=== PATIENT | male | born 1970 | race Caucasian/White ===

== ENCOUNTER 2017-04-08 14:58 | Inpatient (IN) | payer OTHER ==
[~2017-04-08] VITALS: Ht 185.4 cm; Wt 91.2 kg
[~2017-04-08 14:58] MED LIST: BUME1TAB PO; FOLI1 PO; HYDR25R RECTAL; KCL10 PO; LACT20SO4 PO; LEVA750T PO; METO25 PO; OMPR20CCR PO; RIFA550 PO; SERO25TA PO; SPIR25 PO; THERM PO; THIA100T PO; WALKER ROLLING
[2017-04-08 15:10] VITALS: BP 129/74; PULSE 105; RESP 16; TEMP 99; O2SAT 99
--- NOTE | 2017-04-08 15:44 | PD ---
HPI Chief Complaint: Abdominal Pain Time Seen by Provider: 15:30 Travel History International Travel<30 days: No Contact w/Intl Traveler<30days: No Traveled to known affect area: No History of Present Illness HPI 46-year-old male presents to the emergency department via EMS for evaluation of jaundice and abdominal pain. Patient states he quit drinking about 5-6 days ago. He states that on Saturday, he noticed his eyes were turning yellow. Patient states that he has been having abdominal pain for about 5-6 days when he quit drinking. He states he was drinking about a third bottle of vodka daily. Patient reports subjective fevers and chills. He denies any chest pain or shortness of breath. Reports pain is 10/10 in the upper abdomen, sharp and throbbing, without radiation. Patient is crying on my exam due to the pain. He reports vomiting and diarrhea. Patient denies any exacerbating or alleviating factors. Moderate severity. PFSH Past Medical History Arthritis: Yes (PAINFUL JOINTS) Asthma: No Autoimmune Disease: No Anxiety: Yes Depression: Yes Heart Rhythm Problems: Yes Cancer: No Cardiovascular Problems: Yes High Cholesterol: No Chemotherapy: No Chest Pain: Yes Congestive Heart Failure: No COPD: No Cerebrovascular Accident: No Diabetes: No Diminished Hearing: No Endocrine: No Gastrointestinal Disorders: Yes GERD: Yes Genitourinary: Yes Headaches: Yes Hiatal Hernia: Yes Hypertension: Yes Immune Disorder: No Kidney Stones: Yes Musculoskeletal: Yes (chronic back pain) Neurologic: Yes Psychiatric: Yes Reproductive: No Respiratory: No Migraines: Yes Radiation Therapy: No Renal Failure: No Seizures: No Sickle Cell Disease: No Sleep Apnea: Yes Thyroid Disease: No Ulcer: Yes Past Surgical History Abdominal Surgery: Yes (umbilical hernia with mesh/ liver abcess operation) AICD: No Arteriovenous Shunt: No Body Medical Devices: gastric mesh , plate under eye Cardiac Surgery: No Ear Surgery: No Endocrine Surgery: No Eye Surgery: No Genitourinary Surgery: Yes (circumcission redone) Gynecologic Surgery: No Insulin Pump: No Joint Replacement: No Neurologic Surgery: Yes (plate placed under eye-LEFT) Oral Surgery: Yes (wisdom teeth) Pacemaker: No Thoracic Surgery: No Other Surgery: Yes (liver abscess, plate in eye, 2/3 LIVER REMOVED, TENDONS SEVERED IN RIGHT ) Social History Alcohol Use: Yes (QUIT 1.5 WEEKS GO) Tobacco Use: Yes Substance Use: No Allergies-Medications (Allergen,Severity, Reaction): Coded Allergies: No Known Allergies (Unverified Allergy, Unknown, 04/08/17) Reported Meds & Prescriptions Reported Meds & Active Scripts Active Reported Lactulose Liq (Lactulose) 10 Gm/15 Ml Soln 30 Ml PO Q6H PRN Vitamin B-1 (Thiamine HCl) 100 Mg Tab 100 Mg PO DAILY Creon (Amylase/Lipase/Protease) 12,000-38,000-60,000 Units Cap 1 Cap PO TIDPC Folic Acid 0.4 Mg Tab 400 Mcg PO DAILY Review of Systems Except as stated in HPI: all other systems reviewed are Neg Physical Exam Narrative GENERAL: Well-nourished, well-developed male patient, Afebrile. Patient is jaundice. SKIN: Focused skin assessment warm/dry. HEAD: Normocephalic. EYES: No injection or drainage. NECK: Supple, trachea midline. No JVD or lymphadenopathy. CARDIOVASCULAR: Regular rate and rhythm without murmurs, gallops, or rubs. RESPIRATORY: Breath sounds equal bilaterally. No accessory muscle use. Lungs sounds clear to auscultation. GASTROINTESTINAL: Abdomen distended, upper abdominal tenderness to palpation.. MUSCULOSKELETAL: No cyanosis, or edema. BACK: Nontender without obvious deformity. No CVA tenderness. Data Data Last Documented VS Vital Signs Date Time Temp Pulse Resp B/P (MAP) Pulse Ox O2 Delivery O2 Flow Rate FiO2 04/08/17 16:08 99 Room Air 04/08/17 15:10 99.0 105 16 Orders Orders Complete Blood Count With Diff (04/08/17 15:36) Comprehensive Metabolic Panel (04/08/17 15:36) Lipase (04/08/17 15:36) Prothrombin Time / Inr (Pt) (04/08/17 15:36) Act Partial Throm Time (Ptt) (04/08/17 15:36) Urinalysis - C+S If Indicated (04/08/17 15:36) Ct Abd/Pel W Iv Contrast(Rout) (04/08/17 15:36) Iv Access Insert/Monitor (04/08/17 15:36) Ecg Monitoring (04/08/17 15:36) Oximetry (04/08/17 15:36) Morphine Inj (Morphine Inj) (04/08/17 15:45) Ondansetron Inj (Zofran Inj) (04/08/17 15:45) Sodium Chloride 0.9% Flush (Ns Flush) (04/08/17 15:45) Electrocardiogram (04/08/17 15:36) Chest, Single Ap (04/08/17 15:36) Ammonia (04/08/17 15:36) Morphine Inj (Morphine Inj) (04/08/17 16:30) Iohexol 350 Inj (Omnipaque 350 Inj) (04/08/17 17:00) Vital Signs (Adult) Q4H (04/08/17 18:28) Activity Bed Rest With Brp (04/08/17 18:28) Activity Oob With Assistance (04/08/17 18:28) Bedside Glucose GARRETT.CSUGAR (04/08/17 18:28) Ondansetron Inj (Zofran Inj) (04/08/17 18:30) Basic Metabolic Panel (Bmp) (04/09/17 06:00) Complete Blood Count With Diff (04/09/17 06:00) Prothrombin Time / Inr (Pt) (04/09/17 06:00) Hepatic Functional Panel (04/09/17 06:00) Scd Bilateral/Knee High GARRETT.BID (04/08/17 18:28) Naloxone Inj (Narcan Inj) (04/08/17 18:30) Magnesium Hydroxide Liq (Milk Of Magnesi (04/08/17 18:30) Sennosides (Senokot) (04/08/17 18:30) Bisacodyl Supp (Dulcolax Supp) (04/08/17 18:30) Lactulose Liq (Lactulose Liq) (04/08/17 18:30) Admit To Inpatient (04/08/17 ) Diet Heart Healthy (04/08/17 Dinner) Oxycodone (Roxicodone) (04/08/17 18:45) Morphine Inj (Morphine Inj) (04/08/17 18:45) Oxycodone (Roxicodone) (04/08/17 18:45) Alcohol Withdrawal Asmt-Ciwa Q4HX18 (04/08/17 18:36) Flumazenil Inj (Romazicon Inj) (1/8/18 18:45) Lorazepam (Ativan) (04/08/17 18:45) Lorazepam Inj (Ativan Inj) (04/08/17 18:45) Lorazepam (Ativan) (04/08/17 18:45) Lorazepam Inj (Ativan Inj) (04/08/17 18:45) Lorazepam Inj (Ativan Inj) (04/08/17 18:45) Lorazepam Inj (Ativan Inj) (04/08/17 18:45) Inpatient Certification (04/08/17 ) Admit Order (Ed Use Only) (04/08/17 18:55) Labs Laboratory Tests Test 04/08/17 16:00 White Blood Count 9.1 TH/MM3 Red Blood Count 3.70 MIL/MM3 Hemoglobin 13.9 GM/DL Hematocrit 38.9 % Mean Corpuscular Volume 105.2 FL Mean Corpuscular Hemoglobin 37.6 PG Mean Corpuscular Hemoglobin Concent 35.7 % Red Cell Distribution Width 14.8 % Platelet Count 171 TH/MM3 Mean Platelet Volume 9.7 FL Neutrophils (%) (Auto) 81.3 % Lymphocytes (%) (Auto) 7.9 % Monocytes (%) (Auto) 10.1 % Eosinophils (%) (Auto) 0.4 % Basophils (%) (Auto) 0.3 % Neutrophils # (Auto) 7.4 TH/MM3 Lymphocytes # (Auto) 0.7 TH/MM3 Monocytes # (Auto) 0.9 TH/MM3 Eosinophils # (Auto) 0.0 TH/MM3 Basophils # (Auto) 0.0 TH/MM3 CBC Comment DIFF FINAL Differential Comment Prothrombin Time 32.1 SEC Prothromb Time International Ratio 3.2 RATIO Activated Partial Thromboplast Time 35.4 SEC Blood Urea Nitrogen 5 MG/DL Creatinine 0.82 MG/DL Random Glucose 86 MG/DL Total Protein 5.0 GM/DL Albumin 2.2 GM/DL Calcium Level 6.9 MG/DL Alkaline Phosphatase 201 U/L Aspartate Amino Transf (AST/SGOT) 269 U/L Alanine Aminotransferase (ALT/SGPT) 80 U/L Total Bilirubin 16.7 MG/DL Sodium Level 130 MEQ/L Potassium Level 4.6 MEQ/L Chloride Level 96 MEQ/L Carbon Dioxide Level 25.1 MEQ/L Anion Gap 9 MEQ/L Estimat Glomerular Filtration Rate 101 ML/MIN Protein Corrected Calcium 8.0 MG/DL Ammonia 19 MCMOL/L Lipase 110 U/L [facility] Medical Decision Making Medical Screen Exam Complete: Yes Emergency Medical Condition: Yes Medical Record Reviewed: Yes Differential Diagnosis Obstructive jaundice versus pancreatitis versus electrolyte abnormality Narrative Course 46 year old male presents to the emergency department for evaluation of jaundice , abdominal pain. EKG, CBC, CMP, lipase, ammonia level, PTT, PT/INR, UA are ordered and pending. CT abdomen/pelvis with IV contrast and chest x-ray are ordered and pending. Patient is given morphine 4 mg IV, Zofran 4 mg IV. Workup is initiated in the ambulance hallway. Patient will be transferred to a medical bed for further evaluation and disposition. Marti Waters Apr 08, 2017 15:44
[2017-04-08] MEDS ORDERED: MORPHINE SULFATE 4 MG/ML INJ IV PUSH ONE (15:45)
[2017-04-08] MEDS ORDERED: ONDANSETRON HCL 4 MG/2 ML VIAL IVP ONE (15:45)
--- NOTE | 2017-04-08 16:02 | RADRPT ---
EXAM DATE/TIME: 04/08/2017 15:47 [facility] COMPARISON: CHEST SINGLE AP, July 12, 2015, 12:41. INDICATIONS : Short of breath, chest and abdominal pain MEDICAL HISTORY : Hypertension. Gastroesophageal reflux disease. Ulcers. liver cyst SURGICAL HISTORY : umbilical hernia repair, liver surgery ENCOUNTER: Initial ACUITY: 4 - 6 days PAIN SCORE: 8/10 LOCATION: Bilateral chest FINDINGS: A single view of the chest demonstrates the lungs to be symmetrically aerated without evidence of mas s, infiltrate or effusion. The cardiomediastinal contours are unremarkable. Osseous structures are intact. CONCLUSION: No acute disease. No significant change has occurred. Sekou Gibbs MD on April 08, 2017 at 15:58 Board Certified Radiologist. This report was verified electronically.
[2017-04-08 16:08] VITALS: O2SAT 99
[2017-04-08] MEDS: SODIUM CHLORIDE 0.9% FLUSH 10 ML FLUSH IV FLUSH PRN ×2 (16:14→16:22)
[2017-04-08 16:30] LABS: AUTOMATED NEUTROPHIL # 7.4 TH/MM3 (1.8-7.7); BASOPHIL % 0.3 % (0.0-2.0); EOSINOPHIL % 0.4 % (0.0-4.0); HEMATOCRIT 38.9 % (39.0-51.0); HEMOGLOBIN 13.9 GM/DL (13.0-17.0); LYMPH % 7.9 % (9.0-44.0); LYMPHOCYTE # 0.7 TH/MM3 (1.0-4.8); MEAN CELL VOLUME 105.2 FL (80.0-100.0); MEAN CORPUSCULAR HEMOGLOBIN 37.6 PG (27.0-34.0); MEAN CORPUSCULAR HGB CONC 35.7 % (32.0-36.0); MEAN PLATELET VOLUME 9.7 FL (7.0-11.0); MONO % 10.1 % (0.0-8.0); MONOCYTE # 0.9 TH/MM3 (0-0.9); NEUT % 81.3 % (16.0-70.0); PLATELET COUNT 171 TH/MM3 (150-450); RED CELL DISTRIBUTION WIDTH 14.8 % (11.6-17.2); WHITE BLOOD COUNT 9.1 TH/MM3 (4.0-11.0)
[2017-04-08] MEDS ORDERED: MORPHINE SULFATE 2 MG/ML INJ IV PUSH ONE (16:30)
[2017-04-08 16:35] LABS: INTERNATIONAL NORMALIZED RATIO 3.2 RATIO; PROTHROMBIN TIME - PATIENT 32.1 SEC (9.8-11.6)
[2017-04-08 17:00] LABS: ALBUMIN 2.2 GM/DL (3.4-5.0); BICARBONATE 25.1 MEQ/L (21.0-32.0); CALCIUM 6.9 MG/DL (8.5-10.1); CREATININE 0.82 MG/DL (0.60-1.30); TOTAL BILIRUBIN ADULT 16.7 MG/DL (0.2-1.0)
[2017-04-08] MEDS ORDERED: IOHEXOL 350 MG/ML 10 ML VIAL (for RAD DIAG) IVCONTRAST ONE (17:00)
--- NOTE | 2017-04-08 17:49 | RADRPT ---
EXAM DATE/TIME: 04/08/2017 17:22 [facility] COMPARISON: CT ABDOMEN & PELVIS W CONTRAST, September 30, 2015, 17:13. INDICATIONS : Diffuse abdomen pain for five days. IV CONTRAST: 96 cc Omnipaque 350 (iohexol) IV ORAL CONTRAST: No oral contrast ingested. RADIATION DOSE: 7.37 CTDIvol (mGy) MEDICAL HISTORY : Renal calculi. Hypertension. SURGICAL HISTORY : Umbilical hernia repair. ENCOUNTER: Initial ACUITY: 4 - 6 days PAIN SCALE: 7/10 LOCATION: Bilateral abdomen TECHNIQUE: Volumetric scanning of the abdomen and pelvis was performed. Using automated exposure control and ad justment of the mA and/or kV according to patient size, radiation dose was kept as low as reasonably achievable to obtain optimal diagnostic quality images. DICOM format image data is available electro nically for review and comparison. FINDINGS: Minimal bibasilar parenchymal changes. Diffuse fatty infiltration in the liver Prominent gallbladder with minimal gallbladder wall enhancement. Correlation is suggested. Spleen pancreas are unremarkable. There is no intra-pancreatitis. Adrenals and kidneys are unremarkable There is no ascites. There is no adenopathy. Pelvic contents are unremarkable. CONCLUSION: Minimal gallbladder wall enhancement, nonspecific Jasiel infiltration in the liver Papo Arthur MD FACR on April 08, 2017 at 17:44 Board Certified Radiologist. This report was verified electronically.
[2017-04-08] MEDS ORDERED: CREON12 PO (18:22)
[2017-04-08] MEDS ORDERED: VITA100T54 PO (18:22)
[2017-04-08] MEDS ORDERED: LACT10SO PO (18:22)
[2017-04-08] MEDS ORDERED: FOLI400T PO (18:22)
[2017-04-08] MEDS ORDERED: MAGNESIUM HYDROXIDE SUSP 30 ML CUP PO PRN (18:30)
[2017-04-08] MEDS ORDERED: NALOXONE HCL 0.4 MG/ML AMP IV PUSH PRN (18:30)
[2017-04-08] MEDS ORDERED: BISACODYL 10 MG SUPP RECTAL PRN (18:30)
[2017-04-08] MEDS ORDERED: SENNOSIDES 8.6 MG TAB PO PRN (18:30)
[2017-04-08] MEDS ORDERED: LACTULOSE SYRUP 20 GM/30 ML CUP PO PRN (18:30)
[2017-04-08] MEDS ORDERED: LORazepam 2 MG/ML VIAL IV PUSH PRN ×3 (18:45)
[2017-04-08] MEDS ORDERED: MORPHINE SULFATE 2 MG/ML INJ IV PUSH PRN (18:45)
[2017-04-08] MEDS ORDERED: FLUMAZENIL 0.5 MG/5 ML VIAL IV PUSH PRN (18:45)
--- NOTE | 2017-04-08 19:16 | PD ---
Physical Exam Date Seen by Provider: Apr 08, 2017 Time Seen by Provider: 17:40 Narrative The patient was seen previously in the [facility] by Marti Tariq PA-C. He is a 46-year-old male with a history of alcohol abuse, presents here with points of abdominal swelling and pain as well as yellowing of his eyes and nausea vomiting. The patient also reports loose stools. He denies any fevers, chills. He states he has had alcohol withdrawal in the past. He reports he last drank 6 days ago. He states that he went through the shakes a couple days ago. Data Data Last Documented VS Vital Signs Date Time Temp Pulse Resp B/P (MAP) Pulse Ox O2 Delivery O2 Flow Rate FiO2 04/08/17 16:08 99 Room Air 04/08/17 15:10 99.0 105 16 Orders Orders Complete Blood Count With Diff (04/08/17 15:36) Comprehensive Metabolic Panel (04/08/17 15:36) Lipase (04/08/17 15:36) Prothrombin Time / Inr (Pt) (04/08/17 15:36) Act Partial Throm Time (Ptt) (04/08/17 15:36) Urinalysis - C+S If Indicated (04/08/17 15:36) Ct Abd/Pel W Iv Contrast(Rout) (04/08/17 15:36) Iv Access Insert/Monitor (04/08/17 15:36) Ecg Monitoring (04/08/17 15:36) Oximetry (04/08/17 15:36) Morphine Inj (Morphine Inj) (04/08/17 15:45) Ondansetron Inj (Zofran Inj) (04/08/17 15:45) Sodium Chloride 0.9% Flush (Ns Flush) (04/08/17 15:45) Electrocardiogram (04/08/17 15:36) Chest, Single Ap (04/08/17 15:36) Ammonia (04/08/17 15:36) Morphine Inj (Morphine Inj) (04/08/17 16:30) Iohexol 350 Inj (Omnipaque 350 Inj) (04/08/17 17:00) Vital Signs (Adult) Q4H (04/08/17 18:28) Activity Bed Rest With Brp (04/08/17 18:28) Activity Oob With Assistance (04/08/17 18:28) Bedside Glucose GARRETT.CSUGAR (04/08/17 18:28) Ondansetron Inj (Zofran Inj) (04/08/17 18:30) Basic Metabolic Panel (Bmp) (04/09/17 06:00) Complete Blood Count With Diff (04/09/17 06:00) Prothrombin Time / Inr (Pt) (04/09/17 06:00) Hepatic Functional Panel (04/09/17 06:00) Scd Bilateral/Knee High GARRETT.BID (04/08/17 18:28) Naloxone Inj (Narcan Inj) (04/08/17 18:30) Magnesium Hydroxide Liq (Milk Of Magnesi (04/08/17 18:30) Sennosides (Senokot) (04/08/17 18:30) Bisacodyl Supp (Dulcolax Supp) (04/08/17 18:30) Lactulose Liq (Lactulose Liq) (04/08/17 18:30) Admit To Inpatient (04/08/17 ) Diet Heart Healthy (04/08/17 Dinner) Oxycodone (Roxicodone) (04/08/17 18:45) Morphine Inj (Morphine Inj) (04/08/17 18:45) Oxycodone (Roxicodone) (04/08/17 18:45) Alcohol Withdrawal Asmt-Ciwa Q4HX18 (04/08/17 18:36) Flumazenil Inj (Romazicon Inj) (04/08/17 18:45) Lorazepam (Ativan) (04/08/17 18:45) Lorazepam Inj (Ativan Inj) (04/08/17 18:45) Lorazepam (Ativan) (04/08/17 18:45) Lorazepam Inj (Ativan Inj) (04/08/17 18:45) Lorazepam Inj (Ativan Inj) (04/08/17 18:45) Lorazepam Inj (Ativan Inj) (04/08/17 18:45) Inpatient Certification (04/08/17 ) Admit Order (Ed Use Only) (04/08/17 18:55) Labs Laboratory Tests Test 04/08/17 16:00 White Blood Count 9.1 TH/MM3 Red Blood Count 3.70 MIL/MM3 Hemoglobin 13.9 GM/DL Hematocrit 38.9 % Mean Corpuscular Volume 105.2 FL Mean Corpuscular Hemoglobin 37.6 PG Mean Corpuscular Hemoglobin Concent 35.7 % Red Cell Distribution Width 14.8 % Platelet Count 171 TH/MM3 Mean Platelet Volume 9.7 FL Neutrophils (%) (Auto) 81.3 % Lymphocytes (%) (Auto) 7.9 % Monocytes (%) (Auto) 10.1 % Eosinophils (%) (Auto) 0.4 % Basophils (%) (Auto) 0.3 % Neutrophils # (Auto) 7.4 TH/MM3 Lymphocytes # (Auto) 0.7 TH/MM3 Monocytes # (Auto) 0.9 TH/MM3 Eosinophils # (Auto) 0.0 TH/MM3 Basophils # (Auto) 0.0 TH/MM3 CBC Comment DIFF FINAL Differential Comment Prothrombin Time 32.1 SEC Prothromb Time International Ratio 3.2 RATIO Activated Partial Thromboplast Time 35.4 SEC Blood Urea Nitrogen 5 MG/DL Creatinine 0.82 MG/DL Random Glucose 86 MG/DL Total Protein 5.0 GM/DL Albumin 2.2 GM/DL Calcium Level 6.9 MG/DL Alkaline Phosphatase 201 U/L Aspartate Amino Transf (AST/SGOT) 269 U/L Alanine Aminotransferase (ALT/SGPT) 80 U/L Total Bilirubin 16.7 MG/DL Sodium Level 130 MEQ/L Potassium Level 4.6 MEQ/L Chloride Level 96 MEQ/L Carbon Dioxide Level 25.1 MEQ/L Anion Gap 9 MEQ/L Estimat Glomerular Filtration Rate 101 ML/MIN Protein Corrected Calcium 8.0 MG/DL Ammonia 19 MCMOL/L Lipase 110 U/L [facility] Medical Record Reviewed: Yes Supervised Visit with MAHESH: Yes Narrative Course 36-year-old male presents today with complaints of abdominal pain, nausea vomiting, loose stools. The patient is heme positive stools on exam. Patient has what appears to be new onset ascites. He will need a paracentesis for both diagnostic and therapeutic needs. The patient has an elevated INR of 3.2. He is currently not on any anticoagulation medicines. He has been typed and screened. [facility]. I, Dr. Bar, have reviewed the advance practice practitioner's documentation and am in agreement, met with the patient face to face, made the diagnosis, and the medical decision making was done by me. *My assessment and Findings: New onset ascites with elevated liver enzymes, hypocalcemia, hyponatremia and heme positive stools. HemaPrompt Test Point of Care Internal Pos. & Neg. Controls: Passed Fecal Specimen Occult Blood: Positive Diagnosis Primary Impression: new onset ascites Additional Impressions: Elevated LFTs Hypocalcemia Hyponatremia heme positive stools Admitting Information Admitting Physician Requests: Admit Jace Bar MD Apr 08, 2017 19:16
[2017-04-08 20:22] VITALS: BP 100/69; PULSE 89; RESP 18; O2SAT 100
[2017-04-08] MEDS ORDERED: CALCIUM GLUCONATE 10% 1 GM/10 ML VIAL IV PUSH ONE (20:30)
[2017-04-08 20:33] VITALS: BP 120/67; PULSE 91; RESP 16; TEMP 97.6; O2SAT 97
[2017-04-08] MEDS ORDERED: CALCIUM GLUCONATE INJ 1 GM in SODIUM CHLORIDE 0.9% INJ 100 ML IV ONE (22:00)
[2017-04-08 23:17] VITALS: BP 101/66; PULSE 98; RESP 17; TEMP 98.5; O2SAT 95
[2017-04-08 23:26] LABS: BILIRUBIN, URINE LARGE (NEG); BLOOD, URINE NEG (NEG); GLUCOSE,URINE NEG (NEG); KETONE, URINE TRACE mg/dL (NEG); NITRITE,URINE NEG (NEG); URINE LEUKOCYTE ESTERASE NEG (NEG)
[2017-04-08 23:27] LABS: URINE COLOR DARK-BROWN (YELLW/STRAW)
[2017-04-09] VITALS (7 sets, daily range): BP systolic 99–164; BP diastolic 64–67; PULSE 88–103; RESP 16–18; TEMP 97.9–99; O2SAT 95–97
--- NOTE | 2017-04-09 05:04 | HHI.HP ---
[facility] Admission Diagnosis heme positive stools, abdominal pain and distention secondary to liver disease, hyponatremia Diagnoses: (1) Heme positive stool (2) Elevated LFTs (3) Hyponatremia (4) Alcohol abuse Chief Complaint: Abdominal pain with jaundice Travel History International Travel<30 Days: No Contact w/Intl Traveler <30 Da: No Traveled to Known Affected Are: No History of Present Illness Mr. Garay is a pleasant 46-year-old male with a history of amoebic liver abscess, liver disease, alcohol abuse, anxiety, depression, GERD, hypertension, chronic back pain, and nephrolithiasis who presented to the emergency room on 04/08/2017 complaining of progressively worsening scleral icterus and jaundice as well as abdominal pain. He was found to have a distended abdomen which was thought to be related to new onset ascites in the ED along with scleral icterus and jaundice and elevated LFTs. The patient is admitted with the hospitalist service to provide medical management of the above as well as patient's other chronic comorbidities. The patient is seen in the CDU. He reports upper abdominal pain rated 5 out of 10 relieved with oral oxycodone. The pain in his back is described as squeezing in character and the pain all across the abdomen is described as sharp when he attempts to take deep breath and more of a pressure when he palpates the upper abdominal area. Pain is worse with attempted deep breathing. The patient states his symptoms began on 04/06/2017 which is when he first noted scleral icterus. By Saturday, he noticed jaundice in bilateral hands and abdominal pain by Saturday night prompting visit to the emergency room. Abdominal/pelvis CT showed prominent gallbladder with minimal gallbladder enhancement. Chest x-ray was negative for acute process. INR elevated at 3.2. AST elevated at 269 with ALT elevated at 80. Sodium low at 1:30. Review of Systems Except as stated in HPI: all other systems reviewed are Neg Past Family Social History Past Medical History Alcohol abuse since the age of [age] years old Amoebic abscess of the liver Liver disease Anxiety Depression Multiple broken bones GERD Hypertension Chronic back pain Nephrolithiasis Past Surgical History Umbilical hernia repair Liver abscess/resection of liver Left orbital repair with metal plate under left eye Right hand tendon repair . Reported Medications Reported Meds & Active Scripts Active Reported Lactulose Liq (Lactulose) 10 Gm/15 Ml Soln 30 Ml PO Q6H PRN Vitamin B-1 (Thiamine HCl) 100 Mg Tab 100 Mg PO DAILY Creon (Amylase/Lipase/Protease) 12,000-38,000-60,000 Units Cap 1 Cap PO TIDPC Folic Acid 0.4 Mg Tab 400 Mcg PO DAILY . Allergies: Coded Allergies: No Known Allergies (Unverified Allergy, Unknown, 04/08/17) Active Ordered Medications Current Medications Morphine Sulfate (Morphine Inj) 4 mg ONCE ONCE IV PUSH ; Start 04/08/17 at 15:45 ; Stop 04/08/17 at 15:46; Status DC Ondansetron HCl (Zofran Inj) 4 mg ONCE ONCE IVP Last administered on 04/08/17at 16:14; Start 04/08/17 at 15:45; Stop 04/08/17 at 15:46; Status DC Sodium Chloride (NS Flush) 2 ml UNSCH PRN IV FLUSH FLUSH AFTER USING IV ACCESS Last administered on 04/08/17at 16:22; Start 04/08/17 at 15:45 Morphine Sulfate (Morphine Inj) 4 mg ONCE ONCE IV PUSH Last administered on 04/08/17at 16:22; Start 04/08/17 at 16:30; Stop 04/08/17 at 16:31; Status DC Iohexol (Omnipaque 350 Inj) 96 ml STK-MED ONCE IVCONTRAST Last administered on 04/08/17at 17:00; Start 04/08/17 at 17:00; Stop 04/08/17 at 17:43; Status DC Ondansetron HCl (Zofran Inj) 4 mg Q6H PRN IVP NAUSEA OR VOMITING; Start at 18:30 Naloxone HCl (Narcan Inj) 0.4 mg UNSCH PRN IV PUSH SEE LABEL COMMENTS; Start at 18:30 Magnesium Hydroxide (Milk Of Magnesia Liq) 30 ml Q12H PRN PO Mild constipation ; Start 04/08/17 at 18:30 Sennosides (Senokot) 17.2 mg Q12H PRN PO Moderate constipation; Start 04/08/17 at 18:30 Bisacodyl (Dulcolax Supp) 10 mg DAILY PRN RECTAL SEVERE CONSITIPATION; Start at 18:30 Lactulose (Lactulose Liq) 30 ml DAILY PRN PO SEVERE CONSITIPATION; Start at 18:30 Oxycodone HCl (Roxicodone) 10 mg Q4H PRN PO PAIN SCALE 6 TO 10; Start 04/08/17 at 18:45 Morphine Sulfate (Morphine Inj) 4 mg Q3H PRN IV PUSH BREAKTHROUGH PAIN Last administered on 04/08/17at 19:54; Start 04/08/17 at 18:45 Oxycodone HCl (Roxicodone) 5 mg Q4H PRN PO PAIN SCALE 3 TO 5 Last administered on 04/09/17at 03:38; Start 04/08/17 at 18:45 Flumazenil (Romazicon Inj) 0.2 mg Q1M PRN IV PUSH SEE LABEL COMMENTS; Start 04/08/17 at 18:45 Lorazepam (Ativan) 1 mg Q4H PRN PO CIWA 8 - 10; Start 04/08/17 at 18:45 Lorazepam (Ativan Inj) 1 mg Q4H PRN IV PUSH CIWA 8 - 10; Start 04/08/17 at 18:45 Lorazepam (Ativan) 2 mg Q2H PRN PO CIWA 11-14; Start 04/08/17 at 18:45 Lorazepam (Ativan Inj) 2 mg Q2H PRN IV PUSH CIWA 11-14; Start 04/08/17 at 18:45 Lorazepam (Ativan Inj) 2 mg Q1H PRN IV PUSH CIWA 15-20; Start 04/08/17 at 18:45 Lorazepam (Ativan Inj) 2 mg Q15M PRN IV PUSH CIWA > 20; Start 04/08/17 at 18:45 Calcium Gluconate (Calcium Gluconate Inj) 1 gm ONCE ONCE IV PUSH ; Start at 20:30; Stop 04/08/17 at 20:30; Status DC Calcium Gluconate 1 gm/Sodium Chloride 110 ml @ 110 mls/hr ONCE ONCE IV Last administered on 04/08/17at 22:58; Start 04/08/17 at 22:00; Stop 04/08/17 at 22:59; Status DC Influenza Virus Vaccine (Flu (Quadrivalent) Vaccine Inj) 0.5 ml ONCE ONCE IM ; Start 04/09/17 at 09:00; Stop 04/09/17 at 09:01 Pneumococcal Polyvalent Vaccine (Pneumovax-23 Inj) 25 mcg ONCE ONCE IM ; Start 04/09/17 at 09:00; Stop 04/09/17 at 09:01 . Family History Mother with pancreatic cancer and alcoholism . 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 Physical Exam Vital Signs Vital Signs Date Time Temp Pulse Resp B/P (MAP) Pulse Ox O2 Delivery O2 Flow Rate FiO2 04/09/17 03:27 98.3 95 16 164/64 (97) 97 04/09/17 01:56 94 04/08/17 23:17 98.5 98 17 101/66 (78) 95 04/08/17 20:36 18 04/08/17 20:35 04/08/17 20:33 97.6 91 16 120/67 (84) 97 04/08/17 20:22 89 18 100/69 (79) 100 Room Air 04/08/17 16:08 99 Room Air 04/08/17 15:10 99.0 105 16 129/74 (92) 99 Room Air Physical Exam GENERAL: This is a chronically ill-appearing male patient, in no apparent distress. SKIN: No rashes. Cool and dry. HEAD: Atraumatic. Normocephalic. EYES: + icterus. No injection or drainage. ENT: Nose without bleeding, purulent drainage. NECK: Trachea midline. No JVD. CARDIOVASCULAR: Regular rate and rhythm without murmurs, gallops, or rubs. RESPIRATORY: Clear to auscultation. Breath sounds equal bilaterally. No wheezes , rales, or rhonchi. GASTROINTESTINAL: Normally active bowel sounds. Abdomen tender in upper extremity, distended. No guarding. MUSCULOSKELETAL: Extremities without clubbing, cyanosis, or edema. No calf tenderness. NEUROLOGICAL: Awake and alert. Motor and sensory grossly within normal limits. Normal speech. . Laboratory Laboratory Tests Test 04/08/17 16:00 04/08/17 22:37 White Blood Count 9.1 Red Blood Count 3.70 Hemoglobin 13.9 Hematocrit 38.9 Mean Corpuscular Volume 105.2 Mean Corpuscular Hemoglobin 37.6 Mean Corpuscular Hemoglobin Concent 35.7 Red Cell Distribution Width 14.8 Platelet Count 171 Mean Platelet Volume 9.7 Neutrophils (%) (Auto) 81.3 Lymphocytes (%) (Auto) 7.9 Monocytes (%) (Auto) 10.1 Eosinophils (%) (Auto) 0.4 Basophils (%) (Auto) 0.3 Neutrophils # (Auto) 7.4 Lymphocytes # (Auto) 0.7 Monocytes # (Auto) 0.9 Eosinophils # (Auto) 0.0 Basophils # (Auto) 0.0 CBC Comment DIFF FINAL Differential Comment Prothrombin Time 32.1 Prothromb Time International Ratio 3.2 Activated Partial Thromboplast Time 35.4 Blood Urea Nitrogen 5 Creatinine 0.82 Random Glucose 86 Total Protein 5.0 Albumin 2.2 Calcium Level 6.9 Alkaline Phosphatase 201 Aspartate Amino Transf (AST/SGOT) 269 Alanine Aminotransferase (ALT/SGPT) 80 Total Bilirubin 16.7 Sodium Level 130 Potassium Level 4.6 Chloride Level 96 Carbon Dioxide Level 25.1 Anion Gap 9 Estimat Glomerular Filtration Rate 101 Protein Corrected Calcium 8.0 Ammonia 19 Lipase 110 Urine Color DARK-BROWN Urine Turbidity CLEAR Urine pH 7.0 Urine Specific [place] GREATER THAN 1.050 Urine Protein 100 Urine Glucose (UA) NEG Urine Ketones TRACE Urine Occult Blood NEG Urine Nitrite NEG Urine Bilirubin LARGE Urine Urobilinogen 4.0 Urine Leukocyte Esterase NEG Urine RBC 20 Urine WBC 2 Microscopic Urinalysis Comment CULT NOT INDICATED Result Diagram: 04/08/17 1600 04/08/17 1600 Imaging Last Impressions Chest X-Ray 04/08/17 1536 Signed Impressions: Service Date/Time: Saturday, April 08, 2017 15:47 - CONCLUSION: No acute disease. No significant change has occurred. Sekou Gibbs MD Abdomen/Pelvis CT 04/08/17 1536 Signed Impressions: Service Date/Time: Saturday, April 08, 2017 17:22 - CONCLUSION: Minimal gallbladder wall enhancement, nonspecific Jasiel infiltration in the liver Papo Arthur MD FACR . Caprini VTE Risk Assessment Caprini VTE Risk Assessment: Mod/High Risk (score >= 2) Caprini Risk Assessment Model Point Value = 1 Point Value = 2 Point Value = 3 Point Value = 5 Age 41-60 Minor surgery BMI > 25 kg/m2 Swollen legs Varicose veins or History of unexplained or recurrent spontaneous Oral contraceptives or hormone replacement Sepsis (< 1 month) Serious lung disease, including pneumonia (< 1 month) Abnormal pulmonary function Acute myocardial infarction Congestive heart failure (< 1 month) History of inflammatory bowel disease Medical patient at bed rest Age 61-74 Arthroscopic surgery Major open surgery (> 45 min) Laparoscopic surgery (> 45 min) Malignancy Confined to bed (> 72 hours) Immobilizing plaster cast Central venous access Age >= 75 History of VTE Family history of VTE Factor V Leiden Prothrombin [id number] Lupus anticoagulant Anticardiolipin antibodies Elevated serum homocysteine Heparin-induced thrombocytopenia Other congenital or acquired thrombophilia Stroke (< 1 month) Elective arthroplasty Hip, pelvis, or leg fracture Acute spinal cord injury (< 1 month) Prophylaxis Regimen Total Risk Factor Score Risk Level Prophylaxis Regimen 0-1 Low Early ambulation 2 Moderate Order ONE of the following: *Sequential Compression Device (SCD) *Heparin 5000 units SQ BID 3-4 Higher Order ONE of the following medications: *Heparin 5000 units SQ TID *Enoxaparin/Lovenox 40 mg SQ daily (WT < 150 kg, CrCl > 30 mL/min) *Enoxaparin/Lovenox 30 mg SQ daily (WT < 150 kg, CrCl > 10-29 mL/min) *Enoxaparin/Lovenox 30 mg SQ BID (WT < 150 kg, CrCl > 30 mL/min) AND/OR *Sequential Compression Device (SCD) 5 or more Highest Order ONE of the following medications: *Heparin 5000 units SQ TID (Preferred with Epidurals) *Enoxaparin/Lovenox 40 mg SQ daily (WT < 150 kg, CrCl > 30 mL/min) *Enoxaparin/Lovenox 30 mg SQ daily (WT < 150 kg, CrCl > 10-29 mL/min) *Enoxaparin/Lovenox 30 mg SQ BID (WT < 150 kg, CrCl > 30 mL/min) AND *Sequential Compression Device (SCD) Assessment and Plan Problem List: (1) Elevated liver enzymes ICD Code: R74.8 - Abnormal levels of other serum enzymes Status: Acute (2) Hyponatremia ICD Code: E87.1 - Hypo-osmolality and hyponatremia Status: Resolved (3) Alcohol abuse ICD Code: F10.10 - Alcohol abuse, uncomplicated Status: Chronic (4) Jaundice ICD Code: R17 - Unspecified jaundice (5) Scleral icterus ICD Code: R17 - Unspecified jaundice (6) Coagulopathy ICD Code: D68.9 - Coagulation defect, unspecified Assessment and Plan Mr. Garay is a pleasant 46-year-old male with a history of amoebic liver abscess, liver disease, alcohol abuse, anxiety, depression, GERD, hypertension, chronic back pain, and nephrolithiasis who presented to the emergency room on 04/08/2017 complaining of progressively worsening scleral icterus and jaundice as well as abdominal pain. He was found to have a distended abdomen which was thought to be related to new onset ascites in the ED along with scleral icterus and jaundice and elevated LFTs. The patient is admitted with the hospitalist service to provide medical management of the above as well as patient's other chronic comorbidities. Abdominal pain with Elevated liver enzyme, abdominal distention, scleral icterus , and jaundice - AST 269 and ALT 80, ammonia level 19 - Recheck LFTs in a.m. and follow results - Diffuse fatty liver infiltration noted on abdominal/pelvis CT - We'll obtain abdominal ultrasound to evaluate for ascites - patient may require both diagnostic and therapeutic paracentesis - PAIN MEDICATION: Oxycodone 5-10 mg every 4 hours when necessary Hyponatremia - Likely chronic secondary to excessive alcohol consumption - Repeat BMP in a.m. and follow results - May improve with fluid restriction if necessary Alcohol Abuse - Counseled regarding cessation - [facility] protocol - Seizure precautions - Thiamine, folic acid, and multivitamin replacement/supplementation Coagulopathy - INR 3.2 - Recheck PT and INR in a.m. and follow results Heme-positive stools - We will obtain a recheck of CBC stat and follow results - We will consult gastroenterology - appreciate assistance with evaluation DVT prophylaxis - Chemoprophylaxis on hold with heme positive stool - SCDs and TEDs Discussed Condition With Patient, Dr. Brady and RN . Physician Certification 2 Midnight Certification Type: Admission for Inpatient Services Order for Inpatient Services The services are ordered in accordance with Medicare regulations or non- Medicare payer requirements, as applicable. In the case of services not specified as inpatient-only, they are appropriately provided as inpatient services in accordance with the 2-midnight benchmark. Estimated LOS (days): 3 days is the estimated time the patient will need to remain in the hospital, assuming treatment plan goals are met and no additional complications. Post-Hospital Plan: Home Misty Wynn Apr 09, 2017 05:04
[2017-04-09 05:45] LABS: AUTOMATED NEUTROPHIL # 6.9 TH/MM3 (1.8-7.7); BASOPHIL # 0.1 TH/MM3 (0-0.2); BASOPHIL % 0.6 % (0.0-2.0); EOSINOPHIL # 0.2 TH/MM3 (0-0.4); EOSINOPHIL % 2.3 % (0.0-4.0); HEMATOCRIT 37.5 % (39.0-51.0); HEMOGLOBIN 13.4 GM/DL (13.0-17.0); LYMPH % 9.9 % (9.0-44.0); LYMPHOCYTE # 0.9 TH/MM3 (1.0-4.8); MEAN CELL VOLUME 104.8 FL (80.0-100.0); MEAN CORPUSCULAR HEMOGLOBIN 37.5 PG (27.0-34.0); MEAN CORPUSCULAR HGB CONC 35.7 % (32.0-36.0); MEAN PLATELET VOLUME 9.2 FL (7.0-11.0); MONOCYTE # 1.1 TH/MM3 (0-0.9); NEUT % 75.2 % (16.0-70.0); PLATELET COUNT 170 TH/MM3 (150-450); RED BLOOD COUNT 3.58 MIL/MM3 (4.50-5.90); RED CELL DISTRIBUTION WIDTH 14.6 % (11.6-17.2); WHITE BLOOD COUNT 9.2 TH/MM3 (4.0-11.0)
[2017-04-09 05:48] LABS: INTERNATIONAL NORMALIZED RATIO 2.9 RATIO; PROTHROMBIN TIME - PATIENT 29.5 SEC (9.8-11.6)
[2017-04-09 06:04] LABS: ALBUMIN 2.7 GM/DL (3.4-5.0); BICARBONATE 30.1 MEQ/L (21.0-32.0); CALCIUM 8.2 MG/DL (8.5-10.1); CREATININE 0.7 MG/DL (0.60-1.30); DIRECT BILIRUBIN ADULT 15.7 MG/DL (0.0-0.2); INDIRECT BILIRUBIN 4.4 MG/DL (0.0-0.8); TOTAL BILIRUBIN ADULT 20.1 MG/DL (0.2-1.0); TOTAL PROTEIN 5.4 GM/DL (6.4-8.2)
[2017-04-09] MEDS ORDERED: POTASSIUM CHLORIDE 20 MEQ CONTROLLED RELEASE TAB PO ONE (06:15)
[2017-04-09] MEDS: POTASSIUM CHLOR 20 MEQ PREMIX 100 ML IV SCH ×2 (06:40→12:32)
[2017-04-09] MEDS: MULTIVITAMINS/MINERALS THERAPEUTIC TAB PO SCH (08:25)
[2017-04-09] MEDS: THIAMINE HCL 100 MG TAB PO SCH (08:25)
[2017-04-09] MEDS: FOLIC ACID 1 MG TAB PO SCH (08:25)
[2017-04-09] MEDS: ONDANSETRON HCL 4 MG/2 ML VIAL IVP PRN ×2 (08:29→20:38)
[2017-04-09] MEDS ORDERED: PNEUMOCOCCAL POLYVALENT INJ 25 MCG/0.5 ML SYR IM ONE (09:00)
[2017-04-09] MEDS ORDERED: INFLUENZA VIRUS VACCINE (QUADRIVALENT) 0.5 ML SYR IM ONE (09:00)
--- NOTE | 2017-04-09 09:22 | PD.CONS ---
HPI History of Present Illness This is a 46 year old male with hx amoebic liver abscess, ETOH abuse, cirrhosis , who presented with jaundice, abd pain, abd distention. Heme pos stool in ER. ONset 1 week ago. ABd pain focused in right quadrant but radiates diffusely, constant. Exacerbated by external pressure. He was seen at [facility] a year and a half ago for similar but no abd distention- he had jaundice. He was supposed to be on lactulose but wasn't taking it, he started 1 week ago, the day he stopped drinking alcohol b/c he noticed his eyes were yellow. Prior was drinking heavily. Had EGD and colonoscopy 09/2015, EGD was normal and colonoscopy showed poor prep, hemorrhoids. Admits some nausea. Denies seeing blood in his stools, black tarry stools, vomiting. (Lisa Baca) PFSH Past Medical History Alcohol abuse since the age of [age] years old Amoebic abscess of the liver Liver disease Anxiety Depression Multiple broken bones GERD Hypertension Chronic back pain Nephrolithiasis Past Surgical History Umbilical hernia repair Liver abscess/resection of liver Left orbital repair with metal plate under left eye Right hand tendon repair . (Lisa Baca) Coded Allergies: No Known Allergies (Unverified Allergy, Unknown, 04/08/17) Family History Mother with pancreatic cancer and alcoholism . Social History Tobacco: 1/2 ppd recent hx heavy drinking, quit 1 week ago. Illicit Drugs: Has a medical marijuana card . (Lisa Baca) Review of Systems Constitutional: DENIES: Weight loss Endocrine: DENIES: Polydipsia Eyes: DENIES: Blurred vision Ears, nose, mouth, throat: DENIES: Hearing loss Respiratory: DENIES: Cough Cardiovascular: DENIES: Chest pain Gastrointestinal: COMPLAINS OF: Abdominal pain, Diarrhea (on lactulose), Nausea , Swelling of Abdomen, DENIES: Black stools, Bloody stools, Vomiting, Hematemesis Musculoskeletal: DENIES: Joint Swelling Integumentary: COMPLAINS OF: Jaundice Hematologic/lymphatic: COMPLAINS OF: Bruising Neurologic: DENIES: Abnormal gait Psychiatric: DENIES: Confusion (Lisa Baca) GI Exam Vitals I&O Vital Signs Date Time Temp Pulse Resp B/P (MAP) Pulse Ox O2 Delivery O2 Flow Rate FiO2 04/09/17 07:43 99.0 98 18 111/67 (82) 95 04/09/17 03:27 98.3 95 16 164/64 (97) 97 04/09/17 01:56 94 04/08/17 23:17 98.5 98 17 101/66 (78) 95 04/08/17 20:36 18 04/08/17 20:35 04/08/17 20:33 97.6 91 16 120/67 (84) 97 04/08/17 20:22 89 18 100/69 (79) 100 Room Air 04/08/17 16:08 99 Room Air 04/08/17 15:10 99.0 105 16 129/74 (92) 99 Room Air I/O 04/08/17 04/08/17 04/08/17 04/09/17 04/09/17 04/09/17 06:59 14:59 22:59 06:59 14:59 22:59 Intake Total 100 ml 800 ml Balance 100 ml 800 ml Intake Oral 800 ml IV Total 100 ml # Voids 2 Imaging Last Impressions Chest X-Ray 04/08/17 1536 Signed Impressions: Service Date/Time: Saturday, April 08, 2017 15:47 - CONCLUSION: No acute disease. No significant change has occurred. Sekou Gibbs MD Abdomen/Pelvis CT 04/08/17 1536 Signed Impressions: Service Date/Time: Saturday, April 08, 2017 17:22 - CONCLUSION: Minimal gallbladder wall enhancement, nonspecific Jasiel infiltration in the liver Papo Arthur MD FACR Laboratory Test 04/08/17 16:00 04/08/17 22:37 04/09/17 05:14 White Blood Count 9.1 TH/MM3 9.2 TH/MM3 Red Blood Count 3.70 MIL/MM3 3.58 MIL/MM3 Hemoglobin 13.9 GM/DL 13.4 GM/DL Hematocrit 38.9 % 37.5 % Mean Corpuscular Volume 105.2 FL 104.8 FL Mean Corpuscular Hemoglobin 37.6 PG 37.5 PG Mean Corpuscular Hemoglobin Concent 35.7 % 35.7 % Red Cell Distribution Width 14.8 % 14.6 % Platelet Count 171 TH/MM3 170 TH/MM3 Mean Platelet Volume 9.7 FL 9.2 FL Neutrophils (%) (Auto) 81.3 % 75.2 % Lymphocytes (%) (Auto) 7.9 % 9.9 % Monocytes (%) (Auto) 10.1 % 12.0 % Eosinophils (%) (Auto) 0.4 % 2.3 % Basophils (%) (Auto) 0.3 % 0.6 % Neutrophils # (Auto) 7.4 TH/MM3 6.9 TH/MM3 Lymphocytes # (Auto) 0.7 TH/MM3 0.9 TH/MM3 Monocytes # (Auto) 0.9 TH/MM3 1.1 TH/MM3 Eosinophils # (Auto) 0.0 TH/MM3 0.2 TH/MM3 Basophils # (Auto) 0.0 TH/MM3 0.1 TH/MM3 CBC Comment DIFF FINAL DIFF FINAL Differential Comment Prothrombin Time 32.1 SEC 29.5 SEC Prothromb Time International Ratio 3.2 RATIO 2.9 RATIO Activated Partial Thromboplast Time 35.4 SEC Blood Urea Nitrogen 5 MG/DL 8 MG/DL Creatinine 0.82 MG/DL 0.70 MG/DL Random Glucose 86 MG/DL 86 MG/DL Total Protein 5.0 GM/DL 5.4 GM/DL Albumin 2.2 GM/DL 2.7 GM/DL Calcium Level 6.9 MG/DL 8.2 MG/DL Alkaline Phosphatase 201 U/L 240 U/L Aspartate Amino Transf (AST/SGOT) 269 U/L 284 U/L Alanine Aminotransferase (ALT/SGPT) 80 U/L 93 U/L Total Bilirubin 16.7 MG/DL 20.1 MG/DL Sodium Level 130 MEQ/L 129 MEQ/L Potassium Level 4.6 MEQ/L 2.9 MEQ/L Chloride Level 96 MEQ/L 90 MEQ/L Carbon Dioxide Level 25.1 MEQ/L 30.1 MEQ/L Anion Gap 9 MEQ/L 9 MEQ/L Estimat Glomerular Filtration Rate 101 ML/MIN 121 ML/MIN Protein Corrected Calcium 8.0 MG/DL Ammonia 19 MCMOL/L Lipase 110 U/L Urine Color DARK-BROWN Urine Turbidity CLEAR Urine pH 7.0 Urine Specific [place] GREATER THAN 1.050 Urine Protein 100 mg/dL Urine Glucose (UA) NEG mg/dL Urine Ketones TRACE mg/dL Urine Occult Blood NEG Urine Nitrite NEG Urine Bilirubin LARGE Urine Urobilinogen 4.0 MG/DL Urine Leukocyte Esterase NEG Urine RBC 20 /hpf Urine WBC 2 /hpf Microscopic Urinalysis Comment CULT NOT INDICATED Direct Bilirubin 15.7 MG/DL Indirect Bilirubin 4.4 MG/DL Physical Examination HEENT: PERRL; normocephalic; atraumatic; no icteric CHEST: CTA CARDIAC: RRR ABDOMEN: Semifirm, distended, diffusely tender; bowel sounds are present in all four quadrants. EXTREMITIES: No clubbing, cyanosis, or edema. SKIN: Normal; no rash; significant jaundice. MANAGER CULTURE: No focal deficits; alert and oriented times three. (Lisa Baca) Assessment and Plan Plan ASSESSMENT - elevated LFTs, right quadrant pain, jaundice, abd distention - suspect ETOH hepatitis. hx heavy drinking, quit 1 week ago when he became jaundiced has had jaundice before but distention is new. Evaluated by our service and had normal EGD, liver w/u, and cscope with poor prep& hemorrhoids. hx cirrhosis. DF 101. MELD 30 recently started lactulose, perhaps this is cause of his distention as US 04/09/17 showed no ascites, liver dz, hepatosplenomegaly - heme pos stool - HH WNL. macrocytosis. EGD and colon as above PLAN - 40mg IV solumedrol daily - EGD tomorrow - obtain consent - NPO after MN - vit k 10mg inj now - pentoxifylline - monitor labs - continued ETOH cessation - further recs to follow Pt seen by myself and Dr Tejada and this note is written on her behalf (Lisa Baca) Physician Comments seen, examined agree with above start rifaximin 550 mg po bid liver work-up egd in am if inr better needs to stop drinking (Lauren Tejada MD) Lisa Baca Apr 09, 2017 09:22 aLuren Tejada MD Apr 09, 2017 20:54
--- NOTE | 2017-04-09 09:33 | RADRPT ---
EXAM DATE/TIME: 04/09/2017 07:51 [place] COMPARISON: CT ABDOMEN & PELVIS W CONTRAST, April 08, 2017, 17:22. INDICATIONS : Abdominal pain. MEDICAL HISTORY : Hypercholesterolemia. Hernia, hiatal. Renal calculi. Tinnitis. Head trauma. Migraines. Chest pain. HT N. Sleep apnea. Dyspnea. Ulcer. GERD. Chronic back pain. Arthritis. Liver abscess. PTSD. Panic disor kristina. Depression. Anxiety. SURGICAL HISTORY : Umbilical hernia repair. Plate placed under left eye. Liver abscess operation. Circumcission redo ne. Pins in thumb and removed. Facial reconstruction. Blood transfusions. ENCOUNTER: Initial ACUITY: 1 day PAIN SCORE: 10/10 LOCATION: Abdomen. MEASUREMENTS: LIVER: 20.3 cm length COMMON DUCT: Non-visualized RIGHT KIDNEY: 13.3 x 5.8 x 6.1 cm LEFT KIDNEY: 11.8 x 5.8 x 6.1 cm SPLEEN: 13.8 cm length AORTA: Not visualized. FINDINGS: LIVER: Course and echogenicity consistent with diffuse steatosis. No focal liver mass. No intrahepatic ducta l dilatation. COMMON DUCT: Not visualized GALLBLADDER: Minimally prominent wall with small volume pericholecystic fluid adjacent to the fundus, nonspecific in the setting of severe liver disease. No mobile stones. PANCREAS: Mostly obscured RIGHT KIDNEY: No hydronephrosis, stone or mass. LEFT KIDNEY: No hydronephrosis, stone or mass. SPLEEN: Mildly enlarged. No focal mass. AORTA: Nonvisualized IVC: Nonvisualized CONCLUSION: Hepatosplenomegaly with diffuse probable hepatic steatosis. Minimal nonspecific fluid adjacent to the gallbladder. No gallstones. Facundo Jimenez MD on April 09, 2017 at 9:18 Board Certified Radiologist. This report was verified electronically.
[2017-04-09] MEDS: LORazepam 2 MG/ML VIAL IV PUSH PRN (09:59)
[2017-04-09] MEDS ORDERED: PHYTONADIONE 10 MG/ML VIAL SQ ONE (12:00)
[2017-04-09] MEDS: methylPREDNISolone SOD SUCC 40 MG/1 ML VIAL IV PUSH SCH (12:17)
--- NOTE | 2017-04-09 13:45 | HHI.PR ---
Subjective Remarks Follow-up for alcoholic hepatitis/liver failure Patient stated that pain has improved. Denied any nausea or vomiting. When I told patient his diagnosis and reviewed his labs. He got very anxious and asked for some anxiety medication. Patient stated that he wished that he did not drink. Otherwise he had no other complaints. Discussed case with patient's nurse. Objective Vitals Vital Signs Date Time Temp Pulse Resp B/P (MAP) Pulse Ox O2 Delivery O2 Flow Rate FiO2 04/09/17 12:44 98.2 98 16 110/66 (81) 95 04/09/17 07:43 99.0 98 18 111/67 (82) 95 04/09/17 03:27 98.3 95 16 164/64 (97) 97 04/09/17 01:56 94 04/08/17 23:17 98.5 98 17 101/66 (78) 95 04/08/17 20:36 18 04/08/17 20:35 04/08/17 20:33 97.6 91 16 120/67 (84) 97 04/08/17 20:22 89 18 100/69 (79) 100 Room Air 04/08/17 16:08 99 Room Air 04/08/17 15:10 99.0 105 16 129/74 (92) 99 Room Air I/O 04/08/17 04/08/17 04/08/17 04/09/17 04/09/17 04/09/17 06:59 14:59 22:59 06:59 14:59 22:59 Intake Total 100 ml 900 ml Balance 100 ml 900 ml Intake Oral 800 ml IV Total 100 ml 100 ml # Voids 2 Result Diagram: 04/09/17 0514 04/09/17 1158 Imaging Last Impressions Abdomen Ultrasound 04/09/17 0000 Signed Impressions: Service Date/Time: Sunday, April 09, 2017 07:51 - CONCLUSION: Hepatosplenomegaly with diffuse probable hepatic steatosis. Minimal nonspecific fluid adjacent to the gallbladder. No gallstones. Facundo Jimenez MD Chest X-Ray 04/08/17 1536 Signed Impressions: Service Date/Time: Saturday, April 08, 2017 15:47 - CONCLUSION: No acute disease. No significant change has occurred. Sekou Gibbs MD Abdomen/Pelvis CT 04/08/17 1536 Signed Impressions: Service Date/Time: Saturday, April 08, 2017 17:22 - CONCLUSION: Minimal gallbladder wall enhancement, nonspecific Jasiel infiltration in the liver Papo Arthur MD FACR Objective Remarks GENERAL: This is a chronically ill-appearing male patient, in no apparent distress. SKIN: Jaundice. EYES: + icterus. No injection or drainage. CARDIOVASCULAR: Regular rate and rhythm without murmurs, gallops, or rubs. RESPIRATORY: Clear to auscultation. Breath sounds equal bilaterally. No wheezes , rales, or rhonchi. GASTROINTESTINAL: Normally active bowel sounds. Abdomen tender in upper extremity but mild, distended. No guarding. MUSCULOSKELETAL: Extremities without clubbing, cyanosis, or edema. No calf tenderness. NEUROLOGICAL: Awake and alert. Motor and sensory grossly within normal limits. Normal speech but slow and seems to be forgetful. Medications and IVs Current Medications Morphine Sulfate (Morphine Inj) 4 mg ONCE ONCE IV PUSH ; Start 04/08/17 at 15:45 ; Stop 04/08/17 at 15:46; Status DC Ondansetron HCl (Zofran Inj) 4 mg ONCE ONCE IVP Last administered on 04/08/17at 16:14; Start 04/08/17 at 15:45; Stop 04/08/17 at 15:46; Status DC Sodium Chloride (NS Flush) 2 ml UNSCH PRN IV FLUSH FLUSH AFTER USING IV ACCESS Last administered on 04/08/17 16:22; Start 04/08/17 at 15:45 Morphine Sulfate (Morphine Inj) 4 mg ONCE ONCE IV PUSH Last administered on 16:22; Start 04/08/17 at 16:30; Stop 04/08/17 at 16:31; Status DC Iohexol (Omnipaque 350 Inj) 96 ml STK-MED ONCE IVCONTRAST Last administered on 04/08/17 17:00; Start 04/08/17 at 17:00; Stop 04/08/17 at 17:43; Status DC Ondansetron HCl (Zofran Inj) 4 mg Q6H PRN IVP NAUSEA OR VOMITING Last administered on 04/09/17 08:29; Start 04/08/17 at 18:30 Naloxone HCl (Narcan Inj) 0.4 mg UNSCH PRN IV PUSH SEE LABEL COMMENTS; Start at 18:30 Magnesium Hydroxide (Milk Of Magnesia Liq) 30 ml Q12H PRN PO Mild constipation ; Start 04/08/17 at 18:30 Sennosides (Senokot) 17.2 mg Q12H PRN PO Moderate constipation; Start 04/08/17 at 18:30 Bisacodyl (Dulcolax Supp) 10 mg DAILY PRN RECTAL SEVERE CONSITIPATION; Start at 18:30 Lactulose (Lactulose Liq) 30 ml DAILY PRN PO SEVERE CONSITIPATION; Start at 18:30 Oxycodone HCl (Roxicodone) 10 mg Q4H PRN PO PAIN SCALE 6 TO 10; Start 04/08/17 at 18:45 Morphine Sulfate (Morphine Inj) 4 mg Q3H PRN IV PUSH BREAKTHROUGH PAIN Last administered on 04/08/17at 19:54; Start 04/08/17 at 18:45 Oxycodone HCl (Roxicodone) 5 mg Q4H PRN PO PAIN SCALE 3 TO 5 Last administered on 04/09/17at 12:52; Start 04/08/17 at 18:45 Flumazenil (Romazicon Inj) 0.2 mg Q1M PRN IV PUSH SEE LABEL COMMENTS; Start 04/08/17 at 18:45 Lorazepam (Ativan) 1 mg Q4H PRN PO CIWA 8 - 10; Start 04/08/17 at 18:45 Lorazepam (Ativan Inj) 1 mg Q4H PRN IV PUSH CIWA 8 - 10; Start 04/08/17 at 18:45 Lorazepam (Ativan) 2 mg Q2H PRN PO CIWA 11-14; Start 04/08/17 at 18:45 Lorazepam (Ativan Inj) 2 mg Q2H PRN IV PUSH CIWA 11-14 Last administered on 04/09at 09:59; Start 04/08/17 at 18:45 Lorazepam (Ativan Inj) 2 mg Q1H PRN IV PUSH CIWA 15-20; Start 04/08/17 at 18:45 Lorazepam (Ativan Inj) 2 mg Q15M PRN IV PUSH CIWA > 20; Start 04/08/17 at 18:45 Calcium Gluconate (Calcium Gluconate Inj) 1 gm ONCE ONCE IV PUSH ; Start at 20:30; Stop 04/08/17 at 20:30; Status DC Calcium Gluconate 1 gm/Sodium Chloride 110 ml @ 110 mls/hr ONCE ONCE IV Last administered on 04/08/17at 22:58; Start 04/08/17 at 22:00; Stop 04/08/17 at 22:59; Status DC Influenza Virus Vaccine (Flu (Quadrivalent) Vaccine Inj) 0.5 ml ONCE ONCE IM Last administered on 04/09/17at 08:27; Start 04/09/17 at 09:00; Stop 04/09/17 at 09: 01; Status DC Pneumococcal Polyvalent Vaccine (Pneumovax-23 Inj) 25 mcg ONCE ONCE IM Last administered on 04/09/17at 08:28; Start 04/09/17 at 09:00; Stop 04/09/17 at 09:01; Status DC Folic Acid (Folate) 1 mg DAILY PO Last administered on 04/09/17at 08:25; Start at 09:00; Stop 04/14/17 at 08:59 Thiamine HCl (Vitamin B1) 100 mg DAILY PO Last administered on 04/09/17at 08:25; Start 04/09/17 at 09:00 Multivitamins/ Minerals Therapeutic (Theragran M Tab) 1 tab DAILY PO Last administered on 04/09/17at 08:25; Start 04/09/17 at 09:00; Stop 04/14/17 at 08:59 Potassium Chloride (KCl) 40 meq ONCE ONCE PO Last administered on 04/09/17at 06: 30; Start 04/09/17 at 06:15; Stop 04/09/17 at 06:16; Status DC Potassium Chloride 100 ml @ 50 mls/hr Q2H IV Last administered on 04/09/17at 12: 32; Start 04/09/17 at 06:15; Stop 04/09/17 at 10:14; Status DC Phytonadione (Vitamin K Inj) 10 mg ONCE ONCE SQ Last administered on 04/09/17at 12:00; Start 04/09/17 at 12:00; Stop 04/09/17 at 12:01; Status DC Pentoxifylline (TRENtal SR) 400 mg Q8HR PO ; Start 04/09/17 at 14:00 Methylprednisolone Sodium Succinate (SoluMEDROL INJ) 40 mg DAILY IV PUSH Last administered on 04/09/17at 12:17; Start 04/09/17 at 11:30 A/P Problem List: (1) Elevated liver enzymes ICD Code: R74.8 - Abnormal levels of other serum enzymes Status: Acute (2) Hyponatremia ICD Code: E87.1 - Hypo-osmolality and hyponatremia Status: Resolved (3) Alcohol abuse ICD Code: F10.10 - Alcohol abuse, uncomplicated Status: Chronic (4) Jaundice ICD Code: R17 - Unspecified jaundice (5) Scleral icterus ICD Code: R17 - Unspecified jaundice (6) Coagulopathy ICD Code: D68.9 - Coagulation defect, unspecified Assessment and Plan Mr. Garay is a pleasant 46-year-old male with a history of amoebic liver abscess, liver disease, alcohol abuse, anxiety, depression, GERD, hypertension, chronic back pain, and nephrolithiasis who presented to the emergency room on 04/08/2017 complaining of progressively worsening scleral icterus and jaundice as well as abdominal pain. Alcoholic hepatitis/liver failure - AST 269 and ALT 80, ammonia level 19, INR 3.2 - Diffuse fatty liver infiltration noted on abdominal/pelvis CT. ultrasound abdomen shows hepatic steatosis. - GI consulted recommended, IV Solu-Medrol,-vit k 10mg inj, pentoxifylline, EGD tomorrow. -EtOh cessation. -Nothing by mouth after midnight. Hyponatremia - Likely chronic secondary to excessive alcohol consumption - Stable. -EtOH cessation. Alcohol Abuse - Counseled regarding cessation - [facility] protocol - Seizure precautions - Thiamine, folic acid, and multivitamin replacement/supplementation Coagulopathy - INR 3.2 now 2.9. - GI ordered vitamin K. Heme-positive stools - Deny any bleeding. Hemoglobin is stable. -GI consulted but can follow-up as outpatient. He will have an EGD done tomorrow. DVT prophylaxis - Chemoprophylaxis on hold with heme positive stool - SCDs and TEDs Kati Storm MD Apr 09, 2017 13:45
--- NOTE | 2017-04-09 15:11 | EKG ---
Date Performed: 04/08/2017 Time Performed: 15:57:57 PTAGE: 46 years EKG: Sinus rhythm LOW QRS VOLTAGE IN PRECORDIAL LEADS BORDERLINE ECG PREVIOUS TRACING : 09/27/2015 14.11 Compared to prior tracing no significant change DOCTOR: Juaquin Carney Interpretating Date/Time 04/09/2017 15:10:23
[2017-04-09] MEDS: PENTOXIFYLLINE 400 MG CONTROLLED RELEASE TAB PO SCH ×2 (16:50→22:39)
[2017-04-09] MEDS: LORazepam 2 MG TAB PO PRN ×2 (17:02→22:39)
[2017-04-09] MEDS: RIFAXIMIN 550 MG TAB PO SCH (22:39)
[2017-04-10] VITALS (13 sets, daily range): BP systolic 92–125; BP diastolic 57–76; PULSE 81–98; RESP 14–18; TEMP 95.7–98.6; O2SAT 90–96
[2017-04-10] MEDS: ONDANSETRON HCL 4 MG/2 ML VIAL IVP PRN (03:44)
[2017-04-10] MEDS: PENTOXIFYLLINE 400 MG CONTROLLED RELEASE TAB PO SCH ×3 (05:28→23:08)
[2017-04-10] MEDS: PANTOPRAZOLE INJ 80 MG in SODIUM CHLORIDE 0.9% INJ 100 ML IV SCH ×3 (05:28→14:46)
[2017-04-10] MEDS ORDERED: PANTOPRAZOLE INJ 80 MG in SODIUM CHLORIDE 0.9% INJ 35 ML IV ONE (05:30)
[2017-04-10 05:35] LABS: HEMATOCRIT 36.7 % (39.0-51.0); HEMOGLOBIN 13.1 GM/DL (13.0-17.0); MEAN CELL VOLUME 105.7 FL (80.0-100.0); MEAN CORPUSCULAR HEMOGLOBIN 37.9 PG (27.0-34.0); MEAN CORPUSCULAR HGB CONC 35.8 % (32.0-36.0); MEAN PLATELET VOLUME 9.3 FL (7.0-11.0); PLATELET COUNT 166 TH/MM3 (150-450); RED BLOOD COUNT 3.47 MIL/MM3 (4.50-5.90); RED CELL DISTRIBUTION WIDTH 14.8 % (11.6-17.2); WHITE BLOOD COUNT 9.6 TH/MM3 (4.0-11.0)
[2017-04-10 05:41] LABS: INTERNATIONAL NORMALIZED RATIO 3.4 RATIO; PROTHROMBIN TIME - PATIENT 34.3 SEC (9.8-11.6)
[2017-04-10 05:55] LABS: ALT (GPT) 104 U/L (12-78)
[2017-04-10 06:01] LABS: ALBUMIN 2.5 GM/DL (3.4-5.0); ALKALINE PHOSPHATASE 244 U/L (45-117); AST (GOT) 308 U/L (15-37); BICARBONATE 27.1 MEQ/L (21.0-32.0); BLOOD UREA NITROGEN 11 MG/DL (7-18); CALCIUM 7.9 MG/DL (8.5-10.1); CHLORIDE 91 MEQ/L (98-107); CREATININE 0.83 MG/DL (0.60-1.30); GLOMERULAR FILTRATION RATE 99 ML/MIN (>89); GLUCOSE,RANDOM 135 MG/DL (74-106); SODIUM (NA) 130 MEQ/L (136-145); TOTAL BILIRUBIN ADULT 21.6 MG/DL (0.2-1.0); TOTAL PROTEIN 5.4 GM/DL (6.4-8.2)
[2017-04-10] MEDS: MULTIVITAMINS/MINERALS THERAPEUTIC TAB PO SCH (09:06)
[2017-04-10] MEDS: THIAMINE HCL 100 MG TAB PO SCH (09:06)
[2017-04-10] MEDS: methylPREDNISolone SOD SUCC 40 MG/1 ML VIAL IV PUSH SCH (09:06)
[2017-04-10] MEDS: RIFAXIMIN 550 MG TAB PO SCH ×2 (09:06→23:08)
[2017-04-10] MEDS: FOLIC ACID 1 MG TAB PO SCH (09:07)
[2017-04-10] MEDS: PHYTONADIONE 10 MG/ML VIAL SQ SCH (09:07)
[2017-04-10] MEDS: LORazepam 2 MG TAB PO PRN ×2 (09:07→18:28)
[2017-04-10] MEDS ORDERED: DEXAMETHASONE SOD PHOS 4 MG/ML VIAL IV ONE (12:00)
[2017-04-10] MEDS ORDERED: PROPOFOL 200 MG/20 ML AMP IV ONE (12:00)
[2017-04-10] MEDS ORDERED: ONDANSETRON HCL 4 MG/2 ML VIAL IV ONE (12:00)
[2017-04-10] MEDS ORDERED: SUCCINYLCHOLINE CHLORIDE 200 MG/10 ML VIAL IV ONE (12:00)
[2017-04-10] MEDS ORDERED: LIDOCAINE HCL 1% PF 5 ML SYRINGE OTHER ONE (12:00)
[2017-04-10 12:42] LABS: INTERNATIONAL NORMALIZED RATIO 2.5 RATIO; PROTHROMBIN TIME - PATIENT 25.2 SEC (9.8-11.6)
[2017-04-10] MEDS ORDERED: POVIDONE IODINE 5% (ANTISEPSIS KIT) 4 APPLICATIONS EACH NARE PRN (13:15)
[2017-04-10] MEDS ORDERED: SODIUM CHLORID 0.9% 500 ML IV PRN (13:15)
[2017-04-10] MEDS ORDERED: LACTATED RINGER'S 1000 ML IV PRN (13:15)
[2017-04-10] MEDS ORDERED: METOPROLOL TARTRATE 25 MG TAB PO PRN (13:15)
[2017-04-10] MEDS ORDERED: CHLORHEXIDINE GLUCONATE 2 % 1 PACK (2 CLOTHS) TOPICAL PRN (13:15)
[2017-04-10] MEDS ORDERED: DO NOT ADM ANY ANTICOAGULANT DRUGS PRN (13:45)
--- NOTE | 2017-04-10 13:46 | GIPROC ---
[facility] [address] [facility]. [facility], [address] EGD PROCEDURE REPORT EXAM DATE: 04/10/2017 PATIENT NAME: Ryan Garay MR #: [id number] BIRTHDATE: 1970 ATTENDING: Lauren Tejada MD ORDER #: [id number] AIRPORT SKILLED MAINTENANCE SUPERVISOR: Jaylyn Go and Natali Looney STATUS: inpatient INDICATIONS: The patient is a 46 yr old male here for an EGD due to anemia, gi bleeding PROCEDURE PERFORMED: EGD, diagnostic MEDICATIONS: None and Per Anesthesia. TOPICAL ANESTHETIC: none CONSENT: The patient understands the risks and benefits of the procedure and understands that these risks include, but are not limited to: sedation, allergic reaction, infection, perforation and/or bleeding. Alternative means of evaluation and treatment include, among others: physical exam, x-rays, and/or surgical intervention. The patient elects to proceed with this endoscopic procedure. medical equipment was checked for proper function. Hand hygiene and appropriate measures for infection prevention was taken. After the risks, benefits and alternatives of the procedure were thoroughly explained, Informed consent was verified, confirmed and timeout was successfully executed by the treatment team. The patient was anesthetized with topical anesthesia and the Pentax [id number] endoscope was introduced through the mouth and advanced to the second portion of the duodenum. Retroflexed views revealed a hiatal hernia The gastroscope was then slowly withdrawn and removed. Portal gastropathy no varices no bleeding. ADVERSE EVENTS: There were no complications. IMPRESSIONS: 1. Portal gastropathy no varices no bleeding 2. Retroflexed views revealed a hiatal hernia RECOMMENDATIONS: Full liquid diet vitamin k PATIENT CONDITION: stable DISPOSITION: Inpatient REPEAT EXAM: Return 1 year EGD Lauren Tejada MD eSigned: Lauren Tejada MD 04/10/2017 1:46 PM cc:
--- NOTE | 2017-04-10 15:28 | HHI.PR ---
Subjective Remarks EGD today shows no acute bleeding sites visualized. No ulcer. Global gastropathy present. Hiatal hernia present. Objective Vital Signs Date Time Temp Pulse Resp B/P (MAP) Pulse Ox O2 Delivery O2 Flow Rate FiO2 04/10/17 14:00 86 24 105/68 (80) 96 Nasal Cannula 2 04/10/17 13:45 97.2 88 17 98/64 (75) 94 Nasal Cannula 2 04/10/17 12:09 98.6 97 18 108/69 94 04/10/17 10:30 98.0 85 18 125/67 90 04/10/17 10:24 91 Nasal Cannula 2.00 21 04/10/17 10:15 97.9 91 18 113/73 90 04/10/17 08:50 98.0 94 18 98/59 94 04/10/17 08:34 97.9 94 14 109/76 95 04/10/17 04:04 97.8 98 18 98/62 (74) 93 04/10/17 02:17 84 04/10/17 00:54 97.9 92 18 92/64 (73) 94 04/09/17 21:07 97.9 103 16 99/66 (77) 96 04/09/17 15:30 88 I/O 04/09/17 04/09/17 04/09/17 04/10/17 04/10/17 04/10/17 07:00 15:00 23:00 07:00 15:00 23:00 Intake Total 100 ml 900 ml 839 ml Balance 100 ml 900 ml 839 ml Intake Oral 800 ml IV Total 100 ml 100 ml FFP 539 ml Other 300 ml # Voids 2 2 Result Diagram: 04/10/17 0516 04/10/17 0516 Objective Remarks GENERAL: NAD, A&Ox3 HEAD: Normocephalic. NECK: Supple, trachea midline. No lymphadenopathy. EYES: No scleral icterus. No injection or drainage. CARDIOVASCULAR: Regular rate and rhythm without murmurs, gallops, or rubs. RESPIRATORY: Breath sounds equal bilaterally. No accessory muscle use. GASTROINTESTINAL: Abdomen soft, non-tender, nondistended. MUSCULOSKELETAL: No cyanosis, or edema. SKIN: Warm and dry. NEURO: No focal neurological deficitis. A/P Problem List: (1) Heme positive stool ICD Code: R19.5 - Other fecal abnormalities (2) Elevated liver enzymes ICD Code: R74.8 - Abnormal levels of other serum enzymes Status: Acute (3) Scleral icterus ICD Code: R17 - Unspecified jaundice (4) Jaundice ICD Code: R17 - Unspecified jaundice (5) Coagulopathy ICD Code: D68.9 - Coagulation defect, unspecified (6) Alcohol abuse ICD Code: F10.10 - Alcohol abuse, uncomplicated Status: Chronic (7) Elevated LFTs ICD Code: R79.89 - Other specified abnormal findings of blood chemistry Status: Acute (8) Hyponatremia ICD Code: E87.1 - Hypo-osmolality and hyponatremia Status: Resolved Assessment and Plan 46-year-old male with a history of amoebic liver abscess, liver disease, alcohol abuse, anxiety, depression, GERD, hypertension, chronic back pain, and nephrolithiasis who presented to the emergency room on 04/08/2017 complaining of progressively worsening scleral icterus and jaundice as well as abdominal pain. Alcoholic hepatitis liver failure Transaminitis Alcohol abuse GI bleed Coagulopathy from liver disease Follow up LFTs Patient recommended to stop drinking No acute interventions needed on an EGD exam Follow INR Follow PTT Monitor for bleeding status post EGD If CBC remains stable tomorrow we'll consider discharge Delirium tremens Continue CIWA protocol Continue thiamine Continue folic acid Continue multivitamin Hyponatremia Likely from excess alcohol consumption Follow sodium level Avoid alcohol abuse DVT prophylaxis SCDs Avoiding blood thinners secondary to active bleed Gt Cannon MD Apr 10, 2017 15:27
[2017-04-10 15:30] LABS: HEPATITIS A AB IGM NEGATIVE (NEGATIVE); HEPATITIS B CORE AB IGM NEGATIVE (NEGATIVE); HEPATITIS B SURFACE ANTIGEN NEGATIVE (NEGATIVE); HEPATITIS C AB IgG NEGATIVE (NEGATIVE)
[2017-04-10 16:01] LABS: ANA SCREEN NEG (NEG)
[2017-04-11] VITALS (7 sets, daily range): BP systolic 94–102; BP diastolic 57–65; PULSE 78–102; RESP 16–22; TEMP 96.6–97.7; O2SAT 92–95
[2017-04-11] MEDS: PANTOPRAZOLE INJ 80 MG in SODIUM CHLORIDE 0.9% INJ 100 ML IV SCH ×3 (00:54→21:36)
[2017-04-11] MEDS: LORazepam 2 MG TAB PO PRN ×3 (00:54→21:07)
[2017-04-11] MEDS: PENTOXIFYLLINE 400 MG CONTROLLED RELEASE TAB PO SCH ×3 (06:56→21:06)
[2017-04-11] MEDS: FOLIC ACID 1 MG TAB PO SCH (08:55)
[2017-04-11] MEDS: methylPREDNISolone SOD SUCC 40 MG/1 ML VIAL IV PUSH SCH (08:55)
[2017-04-11] MEDS: THIAMINE HCL 100 MG TAB PO SCH (08:55)
[2017-04-11] MEDS: MULTIVITAMINS/MINERALS THERAPEUTIC TAB PO SCH (08:55)
[2017-04-11] MEDS: RIFAXIMIN 550 MG TAB PO SCH ×2 (08:55→21:36)
--- NOTE | 2017-04-11 11:25 | HHI.PR ---
Subjective Remarks Labs for today are pending. Hemoglobin stability needs to be documented. Additionally he has a progressive hyperbilirubinemia which I'm expecting should improve with avoidance of alcohol but this has not occurred yet. Patient reports of bloody bowel movement this morning. He is still in delirium tremens and still requires CIWA protocol. Objective Vital Signs Date Time Temp Pulse Resp B/P (MAP) Pulse Ox O2 Delivery O2 Flow Rate FiO2 04/11/17 08:00 102 04/11/17 07:50 96.6 102 18 102/65 (77) 92 04/11/17 04:00 97.7 80 20 101/63 (76) 92 04/11/17 00:00 78 04/11/17 00:00 97.3 91 20 101/59 (73) 95 04/10/17 21:00 Nasal Cannula 2.00 04/10/17 21:00 84 04/10/17 20:00 95.7 89 18 93/57 (69) 96 04/10/17 18:00 97.3 94 18 107/72 (84) 94 04/10/17 15:24 97.7 81 18 100/65 (77) 93 04/10/17 14:00 86 24 105/68 (80) 96 Nasal Cannula 2 04/10/17 13:45 97.2 88 17 98/64 (75) 94 Nasal Cannula 2 04/10/17 12:09 98.6 97 18 108/69 94 I/O 04/10/17 04/10/17 04/10/17 04/11/17 04/11/17 04/11/17 07:00 15:00 23:00 07:00 15:00 23:00 Intake Total 839 ml Balance 839 ml FFP 539 ml Other 300 ml # Voids 2 Result Diagram: 04/10/17 0516 04/10/17 0516 Objective Remarks GENERAL: NAD, A&Ox3 HEAD: Normocephalic. NECK: Supple, trachea midline. No lymphadenopathy. EYES: No scleral icterus. No injection or drainage. Scleral jaundice. CARDIOVASCULAR: Regular rate and rhythm without murmurs, gallops, or rubs. RESPIRATORY: Breath sounds equal bilaterally. No accessory muscle use. GASTROINTESTINAL: Abdomen soft, non-tender, nondistended. MUSCULOSKELETAL: No cyanosis, or edema. SKIN: Warm and dry. Jaundice. NEURO: No focal neurological deficitis. A/P Problem List: (1) Heme positive stool ICD Code: R19.5 - Other fecal abnormalities (2) Elevated liver enzymes ICD Code: R74.8 - Abnormal levels of other serum enzymes Status: Acute (3) Scleral icterus ICD Code: R17 - Unspecified jaundice (4) Jaundice ICD Code: R17 - Unspecified jaundice (5) Coagulopathy ICD Code: D68.9 - Coagulation defect, unspecified (6) Alcohol abuse ICD Code: F10.10 - Alcohol abuse, uncomplicated Status: Chronic (7) Elevated LFTs ICD Code: R79.89 - Other specified abnormal findings of blood chemistry Status: Acute (8) Hyponatremia ICD Code: E87.1 - Hypo-osmolality and hyponatremia Status: Resolved Assessment and Plan 46-year-old male with a history of amoebic liver abscess, liver disease, alcohol abuse, anxiety, depression, GERD, hypertension, chronic back pain, and nephrolithiasis who presented to the emergency room on 04/08/2017 complaining of progressively worsening scleral icterus and jaundice as well as abdominal pain. Scleral jaundice and icterus not improved. Patient had a bloody bowel movement this morning. EGD showed no pathology which would need any immediate intervention. His GI bleeding may be specifically related to his coagulopathy from liver disease. Patient is reported to be unsteady on his feet. PT is initiated. Labs reviewed. Further monitoring of hemoglobin and bilirubin levels needed. Labs ordered for further monitoring. Librium started. Alcoholic hepatitis liver failure Transaminitis Alcohol abuse GI bleed Coagulopathy from liver disease Follow up LFTs Patient recommended to stop drinking No acute interventions needed on an EGD exam results Follow INR Follow PTT Monitor for bleeding status post EGD If CBC remains stable tomorrow we'll consider discharge Delirium tremens Continue CIWA protocol Scheduled Librium Continue thiamine Continue folic acid Continue multivitamin Hyponatremia Likely from excess alcohol consumption Follow sodium level Avoid alcohol abuse DVT prophylaxis SCDs Avoiding blood thinners secondary to active bleed Gt Cannon MD Apr 11, 2017 11:25
[2017-04-11] MEDS: PHYTONADIONE 10 MG/ML VIAL SQ SCH (11:35)
--- NOTE | 2017-04-11 14:13 | HHI.GIFU ---
Subjective Remarks Pt resting in bed. Admits red bloody BM yesterday but says that he had just drank some kind of "dye" and also had same color urine. He does tell me he had blood in his stool in the distant past when he was in the [place]. (Lisa Baca) Objective Vitals I&O Vital Signs Date Time Temp Pulse Resp B/P (MAP) Pulse Ox O2 Delivery O2 Flow Rate FiO2 04/11/17 12:00 97.2 92 16 100/64 (76) 94 04/11/17 08:00 102 04/11/17 07:50 96.6 102 18 102/65 (77) 92 04/11/17 04:00 97.7 80 20 101/63 (76) 92 04/11/17 00:00 78 04/11/17 00:00 97.3 91 20 101/59 (73) 95 04/10/17 21:00 Nasal Cannula 2.00 04/10/17 21:00 84 04/10/17 20:00 95.7 89 18 93/57 (69) 96 04/10/17 18:00 97.3 94 18 107/72 (84) 94 04/10/17 15:24 97.7 81 18 100/65 (77) 93 I/O 04/10/17 04/10/17 04/10/17 04/11/17 04/11/17 04/11/17 07:00 15:00 23:00 07:00 15:00 23:00 Intake Total 839 ml Balance 839 ml FFP 539 ml Other 300 ml # Voids 2 Laboratory Laboratory Tests Test 04/08/17 16:00 04/08/17 22:37 04/09/17 05:14 04/09/17 22:05 Activated Partial Thromboplast Time 35.4 SEC Protein Corrected Calcium 8.0 MG/DL Lipase 110 U/L Urine Color DARK-BROWN Urine Turbidity CLEAR Urine pH 7.0 Urine Specific [place] GREATER THAN 1.050 Urine Protein 100 mg/dL Urine Glucose (UA) NEG mg/dL Urine Ketones TRACE mg/dL Urine Occult Blood NEG Urine Nitrite NEG Urine Bilirubin LARGE Urine Urobilinogen 4.0 MG/DL Urine Leukocyte Esterase NEG Urine RBC 20 /hpf Urine WBC 2 /hpf Microscopic Urinalysis Comment CULT NOT INDICATED Neutrophils (%) (Auto) 75.2 % Lymphocytes (%) (Auto) 9.9 % Monocytes (%) (Auto) 12.0 % Eosinophils (%) (Auto) 2.3 % Basophils (%) (Auto) 0.6 % Neutrophils # (Auto) 6.9 TH/MM3 Lymphocytes # (Auto) 0.9 TH/MM3 Monocytes # (Auto) 1.1 TH/MM3 Eosinophils # (Auto) 0.2 TH/MM3 Basophils # (Auto) 0.1 TH/MM3 CBC Comment DIFF FINAL Differential Comment Blood Urea Nitrogen 8 MG/DL Creatinine 0.70 MG/DL Random Glucose 86 MG/DL Total Protein 5.4 GM/DL Albumin 2.7 GM/DL Calcium Level 8.2 MG/DL Alkaline Phosphatase 240 U/L Aspartate Amino Transf (AST/SGOT) 284 U/L Alanine Aminotransferase (ALT/SGPT) 93 U/L Total Bilirubin 20.1 MG/DL Direct Bilirubin 15.7 MG/DL Sodium Level 129 MEQ/L Potassium Level 2.9 MEQ/L Chloride Level 90 MEQ/L Carbon Dioxide Level 30.1 MEQ/L Indirect Bilirubin 4.4 MG/DL Iron Level 87 MCG/DL Ammonia 70 MCMOL/L Anti-Nuclear Antibody Screen NEG Hepatitis A IgM Antibody NEGATIVE Hepatitis B Surface Antigen NEGATIVE Hepatitis B Core IgM Antibody NEGATIVE Hepatitis C Antibody NEGATIVE Test 04/10/17 05:16 04/10/17 12:20 White Blood Count 9.6 TH/MM3 Red Blood Count 3.47 MIL/MM3 Hemoglobin 13.1 GM/DL Hematocrit 36.7 % Mean Corpuscular Volume 105.7 FL Mean Corpuscular Hemoglobin 37.9 PG Mean Corpuscular Hemoglobin Concent 35.8 % Red Cell Distribution Width 14.8 % Platelet Count 166 TH/MM3 Mean Platelet Volume 9.3 FL Blood Urea Nitrogen 11 MG/DL Creatinine 0.83 MG/DL Random Glucose 135 MG/DL Total Protein 5.4 GM/DL Albumin 2.5 GM/DL Calcium Level 7.9 MG/DL Alkaline Phosphatase 244 U/L Aspartate Amino Transf (AST/SGOT) 308 U/L Alanine Aminotransferase (ALT/SGPT) 104 U/L Total Bilirubin 21.6 MG/DL Sodium Level 130 MEQ/L Potassium Level 4.1 MEQ/L Chloride Level 91 MEQ/L Carbon Dioxide Level 27.1 MEQ/L Anion Gap 12 MEQ/L Estimat Glomerular Filtration Rate 99 ML/MIN Prothrombin Time 25.2 SEC Prothromb Time International Ratio 2.5 RATIO Laboratory Tests Test 04/08/17 16:00 04/08/17 22:37 04/09/17 05:14 04/09/17 22:05 Activated Partial Thromboplast Time 35.4 SEC Protein Corrected Calcium 8.0 MG/DL Lipase 110 U/L Urine Color DARK-BROWN Urine Turbidity CLEAR Urine pH 7.0 Urine Specific Matthews GREATER THAN 1.050 Urine Protein 100 mg/dL Urine Glucose (UA) NEG mg/dL Urine Ketones TRACE mg/dL Urine Occult Blood NEG Urine Nitrite NEG Urine Bilirubin LARGE Urine Urobilinogen 4.0 MG/DL Urine Leukocyte Esterase NEG Urine RBC 20 /hpf Urine WBC 2 /hpf Microscopic Urinalysis Comment CULT NOT INDICATED Neutrophils (%) (Auto) 75.2 % Lymphocytes (%) (Auto) 9.9 % Monocytes (%) (Auto) 12.0 % Eosinophils (%) (Auto) 2.3 % Basophils (%) (Auto) 0.6 % Neutrophils # (Auto) 6.9 TH/MM3 Lymphocytes # (Auto) 0.9 TH/MM3 Monocytes # (Auto) 1.1 TH/MM3 Eosinophils # (Auto) 0.2 TH/MM3 Basophils # (Auto) 0.1 TH/MM3 CBC Comment DIFF FINAL Differential Comment Blood Urea Nitrogen 8 MG/DL Creatinine 0.70 MG/DL Random Glucose 86 MG/DL Total Protein 5.4 GM/DL Albumin 2.7 GM/DL Calcium Level 8.2 MG/DL Alkaline Phosphatase 240 U/L Aspartate Amino Transf (AST/SGOT) 284 U/L Alanine Aminotransferase (ALT/SGPT) 93 U/L Total Bilirubin 20.1 MG/DL Direct Bilirubin 15.7 MG/DL Sodium Level 129 MEQ/L Potassium Level 2.9 MEQ/L Chloride Level 90 MEQ/L Carbon Dioxide Level 30.1 MEQ/L Indirect Bilirubin 4.4 MG/DL Iron Level 87 MCG/DL Ammonia 70 MCMOL/L Anti-Nuclear Antibody Screen NEG Hepatitis A IgM Antibody NEGATIVE Hepatitis B Surface Antigen NEGATIVE Hepatitis B Core IgM Antibody NEGATIVE Hepatitis C Antibody NEGATIVE Test 04/10/17 05:16 04/10/17 12:20 White Blood Count 9.6 TH/MM3 Red Blood Count 3.47 MIL/MM3 Hemoglobin 13.1 GM/DL Hematocrit 36.7 % Mean Corpuscular Volume 105.7 FL Mean Corpuscular Hemoglobin 37.9 PG Mean Corpuscular Hemoglobin Concent 35.8 % Red Cell Distribution Width 14.8 % Platelet Count 166 TH/MM3 Mean Platelet Volume 9.3 FL Blood Urea Nitrogen 11 MG/DL Creatinine 0.83 MG/DL Random Glucose 135 MG/DL Total Protein 5.4 GM/DL Albumin 2.5 GM/DL Calcium Level 7.9 MG/DL Alkaline Phosphatase 244 U/L Aspartate Amino Transf (AST/SGOT) 308 U/L Alanine Aminotransferase (ALT/SGPT) 104 U/L Total Bilirubin 21.6 MG/DL Sodium Level 130 MEQ/L Potassium Level 4.1 MEQ/L Chloride Level 91 MEQ/L Carbon Dioxide Level 27.1 MEQ/L Anion Gap 12 MEQ/L Estimat Glomerular Filtration Rate 99 ML/MIN Prothrombin Time 25.2 SEC Prothromb Time International Ratio 2.5 RATIO Imaging Last Impressions Abdomen Ultrasound 04/09/17 0000 Signed Impressions: Service Date/Time: Sunday, April 09, 2017 07:51 - CONCLUSION: Hepatosplenomegaly with diffuse probable hepatic steatosis. Minimal nonspecific fluid adjacent to the gallbladder. No gallstones. Facundo Jimenez MD Chest X-Ray 04/08/176 Signed Impressions: Service Date/Time: Saturday, April 08, 2017 15:47 - CONCLUSION: No acute disease. No significant change has occurred. Sekou Gibbs MD Abdomen/Pelvis CT 04/08/171535 Signed Impressions: Service Date/Time: Saturday, April 08, 2017 17:22 - CONCLUSION: Minimal gallbladder wall enhancement, nonspecific Jasiel infiltration in the liver Papo Arthur MD FACR Physical Exam HEENT: PERRL; normocephalic; atraumatic; Icteric CHEST: CTA CARDIAC: RRR ABDOMEN: Soft, distended, mild diffuse TTP; no hepatosplenomegaly; bowel sounds are present in all four quadrants. EXTREMITIES: No clubbing, cyanosis, or edema. SKIN: Normal; no rash; sjignificant jaundice. 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 hx heavy drinking, quit 1 week ago when he became jaundiced has had jaundice before but distention is new. Evaluated by our service and had normal EGD, liver w/u, and cscope with poor prep& hemorrhoids. hx cirrhosis. DF 101. MELD 30 US 04/09/17 showed no ascites, liver dz, hepatosplenomegaly CT shows min GB wall enhancement. LFTs trending up. - heme pos stool - HH WNL. macrocytosis. s/p EGD found portal gastropathy but no bleeding or varices. + bloody BM yesterday PLAN - continue solumedrol - cont xifaxan - cont pentoxifylline - monitor labs - continued ETOH cessation - supportive care Pt seen by myself and Dr Tejada and this note is written on her behalf (Lisa Baca) Physician Comments agree with above (Lauren Tejada MD) Lisa Baca Apr 11, 2017 14:13 Lauren Tejada MD Apr 11, 2017 16:43
[2017-04-11 15:31] LABS: HEMATOCRIT 34.6 % (39.0-51.0); HEMOGLOBIN 12.3 GM/DL (13.0-17.0); MEAN CELL VOLUME 104.8 FL (80.0-100.0); MEAN CORPUSCULAR HEMOGLOBIN 37.3 PG (27.0-34.0); MEAN CORPUSCULAR HGB CONC 35.6 % (32.0-36.0); MEAN PLATELET VOLUME 9.2 FL (7.0-11.0); PLATELET COUNT 196 TH/MM3 (150-450); WHITE BLOOD COUNT 11.2 TH/MM3 (4.0-11.0)
[2017-04-11 15:53] LABS: BICARBONATE 28.9 MEQ/L (21.0-32.0); CALCIUM 7.6 MG/DL (8.5-10.1); CREATININE 0.77 MG/DL (0.60-1.30)
[2017-04-11 15:57] LABS: SMOOTH MUSCLE TOTAL AUTOABS Negative (Negative)
[2017-04-11] MEDS ORDERED: CYCLOBENZAPRINE HCL 10 MG TAB PO PRN (18:15)
[2017-04-11 18:30] LABS: ALPHA-1-ANTITRYPSIN 231 mg/dL (100 - 190)
[2017-04-12] VITALS: BP 100/61; PULSE 85; RESP 22; TEMP 96; O2SAT 95
[2017-04-12 04:00] VITALS: BP 97/62; PULSE 86; RESP 20; TEMP 96.1; O2SAT 95
[2017-04-12] MEDS: PENTOXIFYLLINE 400 MG CONTROLLED RELEASE TAB PO SCH ×3 (05:22→23:15)
[2017-04-12 05:34] LABS: AUTOMATED NEUTROPHIL # 8.1 TH/MM3 (1.8-7.7); BASOPHIL % 0.2 % (0.0-2.0); HEMATOCRIT 34.9 % (39.0-51.0); HEMOGLOBIN 12.4 GM/DL (13.0-17.0); LYMPH % 8.3 % (9.0-44.0); LYMPHOCYTE # 0.8 TH/MM3 (1.0-4.8); MEAN CELL VOLUME 105.3 FL (80.0-100.0); MEAN CORPUSCULAR HEMOGLOBIN 37.5 PG (27.0-34.0); MEAN CORPUSCULAR HGB CONC 35.6 % (32.0-36.0); MEAN PLATELET VOLUME 9.1 FL (7.0-11.0); MONO % 11.8 % (0.0-8.0); MONOCYTE # 1.2 TH/MM3 (0-0.9); NEUT % 79.7 % (16.0-70.0); PLATELET COUNT 204 TH/MM3 (150-450); RED BLOOD COUNT 3.31 MIL/MM3 (4.50-5.90); RED CELL DISTRIBUTION WIDTH 14.8 % (11.6-17.2); WHITE BLOOD COUNT 10.1 TH/MM3 (4.0-11.0)
[2017-04-12 06:03] LABS: ALBUMIN 2.6 GM/DL (3.4-5.0); AST (GOT) 276 U/L (15-37); BLOOD UREA NITROGEN 14 MG/DL (7-18); CALCIUM 7.5 MG/DL (8.5-10.1); CHLORIDE 97 MEQ/L (98-107); CREATININE 0.79 MG/DL (0.60-1.30); GLOMERULAR FILTRATION RATE 105 ML/MIN (>89); GLUCOSE,RANDOM 81 MG/DL (74-106); SODIUM (NA) 134 MEQ/L (136-145)
[2017-04-12 06:04] LABS: ALT (GPT) 121 U/L (12-78)
[2017-04-12 06:14] LABS: ALKALINE PHOSPHATASE 213 U/L (45-117); TOTAL BILIRUBIN ADULT 18.5 MG/DL (0.2-1.0); TOTAL PROTEIN 5.3 GM/DL (6.4-8.2)
[2017-04-12] MEDS: PANTOPRAZOLE INJ 80 MG in SODIUM CHLORIDE 0.9% INJ 100 ML IV SCH ×2 (07:23→17:23)
[2017-04-12 08:00] VITALS: BP 94/57; PULSE 94; RESP 18; TEMP 97.9; O2SAT 96
[2017-04-12] MEDS: LORazepam 2 MG/ML VIAL IV PUSH PRN (09:10)
[2017-04-12] MEDS: THIAMINE HCL 100 MG TAB PO SCH (09:12)
[2017-04-12] MEDS: FOLIC ACID 1 MG TAB PO SCH (09:13)
[2017-04-12] MEDS: MULTIVITAMINS/MINERALS THERAPEUTIC TAB PO SCH (09:13)
[2017-04-12] MEDS: methylPREDNISolone SOD SUCC 40 MG/1 ML VIAL IV PUSH SCH (09:13)
[2017-04-12] MEDS: RIFAXIMIN 550 MG TAB PO SCH ×2 (09:13→20:57)
[2017-04-12] MEDS: PHYTONADIONE 10 MG/ML VIAL SQ SCH (09:13)
[2017-04-12 12:00] VITALS: BP 110/69; PULSE 88; RESP 18; TEMP 97.1; O2SAT 95
--- NOTE | 2017-04-12 12:03 | HHI.PR ---
Subjective Remarks Patient still active DTs. He scored a 14 on a CIWA protocol score this morning. No further reports of bloody bowel movement. Labs reviewed and show that his bilirubin level has slightly decreased. He has a downward trend in his LFTs at this point. His hemoglobin is showing stability. In his INR also has a slight downward trend. Objective Vital Signs Date Time Temp Pulse Resp B/P (MAP) Pulse Ox O2 Delivery O2 Flow Rate FiO2 04/12/17 08:00 97.9 94 18 94/57 (69) 96 04/12/17 04:00 96.1 86 20 97/62 (74) 95 04/12/17 00:00 96.0 85 22 100/61 (74) 95 04/11/17 22:08 20 04/11/17 20:00 Nasal Cannula 2.00 04/11/17 20:00 97.3 93 22 100/59 (73) 95 04/11/17 20:00 87 04/11/17 16:00 97.2 88 20 94/57 (69) 94 I/O 04/11/17 04/11/17 04/11/17 04/12/17 04/12/17 04/12/17 07:00 15:00 23:00 07:00 15:00 23:00 Intake Total 620 ml 360 ml Balance 620 ml 360 ml Intake Oral 620 ml 360 ml # Voids 1 3 # Bowel Movements 0 0 Result Diagram: 04/12/1742104/12/17421 Objective Remarks GENERAL: NAD, A&Ox3 HEAD: Normocephalic. NECK: Supple, trachea midline. No lymphadenopathy. EYES: No scleral icterus. No injection or drainage. Scleral jaundice. CARDIOVASCULAR: Regular rate and rhythm without murmurs, gallops, or rubs. RESPIRATORY: Breath sounds equal bilaterally. No accessory muscle use. GASTROINTESTINAL: Abdomen soft, non-tender, nondistended. MUSCULOSKELETAL: No cyanosis, or edema. SKIN: Warm and dry. Jaundice. NEURO: No focal neurological deficitis. A/P Problem List: (1) Heme positive stool ICD Code: R19.5 - Other fecal abnormalities (2) Elevated liver enzymes ICD Code: R74.8 - Abnormal levels of other serum enzymes Status: Acute (3) Scleral icterus ICD Code: R17 - Unspecified jaundice (4) Jaundice ICD Code: R17 - Unspecified jaundice (5) Coagulopathy ICD Code: D68.9 - Coagulation defect, unspecified (6) Alcohol abuse ICD Code: F10.10 - Alcohol abuse, uncomplicated Status: Chronic (7) Elevated LFTs ICD Code: R79.89 - Other specified abnormal findings of blood chemistry Status: Acute (8) Hyponatremia ICD Code: E87.1 - Hypo-osmolality and hyponatremia Status: Resolved Assessment and Plan 46-year-old male with a history of amoebic liver abscess, liver disease, alcohol abuse, anxiety, depression, GERD, hypertension, chronic back pain, and nephrolithiasis who presented to the emergency room on 04/08/2017 complaining of progressively worsening scleral icterus and jaundice as well as abdominal pain. Scleral jaundice and icterus not improved, but bilirubin level has improved since last checked. No further bloody bowel movements. Global signs of lab work showed improvement in his liver failure. Hopefully his coagulopathy improves. We'll monitor further. Continue to monitor CBC, LFTs, bilirubin level, and INR. Labs ordered for further monitoring. Continue treating delirium tremens. Alcoholic hepatitis liver failure Transaminitis Alcohol abuse GI bleed Coagulopathy from liver disease Follow up LFTs Patient recommended to stop drinking No acute interventions needed on an EGD exam results Follow INR Follow PTT Monitor for bleeding status post EGD If CBC remains stable tomorrow we'll consider discharge Delirium tremens Continue CIWA protocol Scheduled Librium Continue thiamine Continue folic acid Continue multivitamin Hyponatremia Likely from excess alcohol consumption Follow sodium level Avoid alcohol abuse DVT prophylaxis SCDs Avoiding blood thinners secondary to active bleed Gt Cannon MD Apr 12, 2017 12:03
[2017-04-12 13:53] LABS: ENDOMYSIAL AB SCREEN ND (NEGATIVE); ENDOMYSIAL AB TITER ND (<1:5)
[2017-04-12 15:53] LABS: CERULOPLASMIN 34 mg/dL (18-36)
[2017-04-12 16:00] VITALS: BP 101/64; PULSE 82; RESP 18; TEMP 97.5; O2SAT 92
--- NOTE | 2017-04-12 17:09 | HHI.GIFU ---
Subjective Remarks Drowsy foggy, but appeared to get better after conversation continued Skin and sclera remain icteric Afebrile (Stefanie Davis) Objective Vitals I&O Vital Signs Date Time Temp Pulse Resp B/P (MAP) Pulse Ox O2 Delivery O2 Flow Rate FiO2 04/12/17 12:00 97.1 88 18 110/69 (83) 95 04/12/17 08:00 97.9 94 18 94/57 (69) 96 04/12/17 04:00 96.1 86 20 97/62 (74) 95 04/12/17 00:00 96.0 85 22 100/61 (74) 95 04/11/17 22:08 20 04/11/17 20:00 Nasal Cannula 2.00 04/11/17 20:00 97.3 93 22 100/59 (73) 95 04/11/17 20:00 87 I/O 04/11/17 04/11/17 04/11/17 04/12/17 04/12/17 04/12/17 07:00 15:00 23:00 07:00 15:00 23:00 Intake Total 620 ml 360 ml Balance 620 ml 360 ml Intake Oral 620 ml 360 ml # Voids 1 3 # Bowel Movements 0 0 Laboratory Laboratory Tests Test 04/12/17 04:22 White Blood Count 10.1 Red Blood Count 3.31 Hemoglobin 12.4 Hematocrit 34.9 Mean Corpuscular Volume 105.3 Mean Corpuscular Hemoglobin 37.5 Mean Corpuscular Hemoglobin Concent 35.6 Red Cell Distribution Width 14.8 Platelet Count 204 Mean Platelet Volume 9.1 Neutrophils (%) (Auto) 79.7 Lymphocytes (%) (Auto) 8.3 Monocytes (%) (Auto) 11.8 Eosinophils (%) (Auto) 0.0 Basophils (%) (Auto) 0.2 Neutrophils # (Auto) 8.1 Lymphocytes # (Auto) 0.8 Monocytes # (Auto) 1.2 Eosinophils # (Auto) 0.0 Basophils # (Auto) 0.0 CBC Comment DIFF FINAL Differential Comment Blood Urea Nitrogen 14 Creatinine 0.79 Random Glucose 81 Total Protein 5.3 Albumin 2.6 Calcium Level 7.5 Alkaline Phosphatase 213 Aspartate Amino Transf (AST/SGOT) 276 Alanine Aminotransferase (ALT/SGPT) 121 Total Bilirubin 18.5 Sodium Level 134 Potassium Level 3.6 Chloride Level 97 Carbon Dioxide Level 32.0 Anion Gap 5 Estimat Glomerular Filtration Rate 105 Imaging Last Impressions Abdomen Ultrasound 04/09/17 0000 Signed Impressions: Service Date/Time: Sunday, April 09, 2017 07:51 - CONCLUSION: Hepatosplenomegaly with diffuse probable hepatic steatosis. Minimal nonspecific fluid adjacent to the gallbladder. No gallstones. Facundo Jimenez MD Chest X-Ray 04/08/17 1536 Signed Impressions: Service Date/Time: Saturday, April 08, 2017 15:47 - CONCLUSION: No acute disease. No significant change has occurred. Sekou Gibbs MD Abdomen/Pelvis CT 04/08/17 1536 Signed Impressions: Service Date/Time: Saturday, April 08, 2017 17:22 - CONCLUSION: Minimal gallbladder wall enhancement, nonspecific Jasiel infiltration in the liver Papo Arthur MD FACR Physical Exam HEENT: PERRL; normocephalic; atraumatic; Icteric sclera CHEST: CTA CARDIAC: RRR ABDOMEN: Soft, distended, mild diffuse TTP; ; bowel sounds soft EXTREMITIES: No clubbing, cyanosis, or edema. SKIN: Normal; no rash; sjignificant jaundice. 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 hx heavy drinking, quit 1 week ago when he became jaundiced has had jaundice before but distention is new. Evaluated by our service and had normal EGD, liver w/u, and cscope with poor prep& hemorrhoids. hx cirrhosis. DF 101. MELD 30 US 04/09/17 showed no ascites, liver dz, hepatosplenomegaly CT shows min GB wall enhancement. LFTs trending up. - heme pos stool - HH WNL. macrocytosis. s/p EGD found portal gastropathy but no bleeding or varices. + bloody BM yesterday EGD done on 04/10/17 showing Portal gastropathy, no varices hiatal hernia Anemia stable at 12.4 PLAN - solumedrol - xifaxan - PPI IV - pentoxifylline - monitor labs, recheck CMP CBC in the morning - continued ETOH cessation - supportive care Pt seen by myself and Dr Tejada and this note is written on her behalf (Stefanie Davis) Physician Comments agree with above advised about stopping etoh , joining detox program on discharge (Lauren Tejada MD) Stefanie Davis Apr 12, 2017 17:09 Lauren Tejada MD Apr 12, 2017 22:12
[2017-04-12] MEDS: LORazepam 2 MG TAB PO PRN (17:21)
[2017-04-12 20:00] VITALS: BP 104/67; PULSE 90; RESP 22; TEMP 96.7; O2SAT 94
[2017-04-13] VITALS (9 sets, daily range): BP systolic 88–106; BP diastolic 53–71; PULSE 70–89; RESP 16–20; TEMP 96–97.7; O2SAT 92–96
[2017-04-13] MEDS: PANTOPRAZOLE INJ 80 MG in SODIUM CHLORIDE 0.9% INJ 100 ML IV SCH ×2 (04:02→13:28)
[2017-04-13] MEDS: PENTOXIFYLLINE 400 MG CONTROLLED RELEASE TAB PO SCH ×3 (06:17→23:08)
[2017-04-13 07:03] LABS: AUTOMATED NEUTROPHIL # 7.5 TH/MM3 (1.8-7.7); BASOPHIL % 0.2 % (0.0-2.0); EOSINOPHIL % 0.1 % (0.0-4.0); HEMATOCRIT 35.8 % (39.0-51.0); HEMOGLOBIN 12.7 GM/DL (13.0-17.0); LYMPH % 10.6 % (9.0-44.0); MEAN CELL VOLUME 105.1 FL (80.0-100.0); MEAN CORPUSCULAR HEMOGLOBIN 37.1 PG (27.0-34.0); MEAN CORPUSCULAR HGB CONC 35.3 % (32.0-36.0); MEAN PLATELET VOLUME 8.3 FL (7.0-11.0); MONO % 9.7 % (0.0-8.0); MONOCYTE # 0.9 TH/MM3 (0-0.9); NEUT % 79.4 % (16.0-70.0); PLATELET COUNT 174 TH/MM3 (150-450); RED BLOOD COUNT 3.41 MIL/MM3 (4.50-5.90); RED CELL DISTRIBUTION WIDTH 15.3 % (11.6-17.2); WHITE BLOOD COUNT 9.5 TH/MM3 (4.0-11.0)
[2017-04-13 07:04] LABS: INTERNATIONAL NORMALIZED RATIO 1.6 RATIO; PROTHROMBIN TIME - PATIENT 15.9 SEC (9.8-11.6)
[2017-04-13 07:40] LABS: ALBUMIN 2.3 GM/DL (3.4-5.0); BICARBONATE 28.7 MEQ/L (21.0-32.0); CALCIUM 7.4 MG/DL (8.5-10.1); CALCIUM-PROTEIN CORRECTED 8.6 MG/DL (8.5-10.1); CREATININE 0.68 MG/DL (0.60-1.30); TOTAL PROTEIN 4.9 GM/DL (6.4-8.2)
[2017-04-13 07:42] LABS: TOTAL BILIRUBIN ADULT 17.6 MG/DL (0.2-1.0)
[2017-04-13] MEDS: MULTIVITAMINS/MINERALS THERAPEUTIC TAB PO SCH (08:25)
[2017-04-13] MEDS: FOLIC ACID 1 MG TAB PO SCH (08:25)
[2017-04-13] MEDS: RIFAXIMIN 550 MG TAB PO SCH ×2 (08:25→23:08)
[2017-04-13] MEDS: THIAMINE HCL 100 MG TAB PO SCH (08:25)
[2017-04-13] MEDS: SODIUM CHLORIDE 0.9% FLUSH 10 ML FLUSH IV FLUSH PRN (08:25)
[2017-04-13] MEDS: LORazepam 2 MG TAB PO PRN (08:32)
[2017-04-13] MEDS: methylPREDNISolone SOD SUCC 40 MG/1 ML VIAL IV PUSH SCH (09:00)
[2017-04-13 09:03] LABS: TARGET CELLS 1+ (NORMAL)
--- NOTE | 2017-04-13 13:38 | HHI.PR ---
Subjective Remarks Spontaneous increase in hemoglobin today. INR has decreased. Bilirubin has decreased. Patient has no new complaints. He still has delirium tremens based on [facility] protocol measures. Objective Vital Signs Date Time Temp Pulse Resp B/P (MAP) Pulse Ox O2 Delivery O2 Flow Rate FiO2 04/13/17 12:51 83 04/13/17 12:33 96.9 81 18 101/62 (75) 04/13/17 12:00 96.9 81 18 88/53 (65) 92 04/13/17 09:06 17 04/13/17 08:30 86 04/13/17 08:30 93 Room Air 04/13/17 08:00 96.6 77 18 106/53 (70) 93 04/13/17 04:00 96.1 77 20 102/60 (74) 96 04/13/17 00:00 96.0 70 20 101/71 (81) 94 04/12/17 20:00 96.7 90 22 104/67 (79) 94 04/12/17 16:00 97.5 82 18 101/64 (76) 92 I/O 04/12/17 04/12/17 04/12/17 04/13/17 04/13/17 04/13/17 07:00 15:00 23:00 07:00 15:00 23:00 Intake Total 360 ml 520 ml 460 ml Balance 360 ml 520 ml 460 ml Intake Oral 360 ml 420 ml 360 ml IV Total 100 ml 100 ml # Voids 3 1 3 # Bowel Movements 0 0 1 Result Diagram: 04/13/17 0559 04/13/17 0559 Objective Remarks GENERAL: NAD, A&Ox3 HEAD: Normocephalic. NECK: Supple, trachea midline. No lymphadenopathy. EYES: No scleral icterus. No injection or drainage. Scleral jaundice. CARDIOVASCULAR: Regular rate and rhythm without murmurs, gallops, or rubs. RESPIRATORY: Breath sounds equal bilaterally. No accessory muscle use. GASTROINTESTINAL: Abdomen soft, non-tender, nondistended. MUSCULOSKELETAL: No cyanosis, or edema. SKIN: Warm and dry. Jaundice. NEURO: No focal neurological deficitis. A/P Problem List: (1) Heme positive stool ICD Code: R19.5 - Other fecal abnormalities (2) Elevated liver enzymes ICD Code: R74.8 - Abnormal levels of other serum enzymes Status: Acute (3) Scleral icterus ICD Code: R17 - Unspecified jaundice (4) Jaundice ICD Code: R17 - Unspecified jaundice (5) Coagulopathy ICD Code: D68.9 - Coagulation defect, unspecified (6) Alcohol abuse ICD Code: F10.10 - Alcohol abuse, uncomplicated Status: Chronic (7) Elevated LFTs ICD Code: R79.89 - Other specified abnormal findings of blood chemistry Status: Acute (8) Hyponatremia ICD Code: E87.1 - Hypo-osmolality and hyponatremia Status: Resolved Assessment and Plan 46-year-old male with a history of amoebic liver abscess, liver disease, alcohol abuse, anxiety, depression, GERD, hypertension, chronic back pain, and nephrolithiasis who presented to the emergency room on 04/08/2017 complaining of progressively worsening scleral icterus and jaundice as well as abdominal pain. Continued improvement seen today. Continue to monitor hyperbilirubinemia, hemoglobin levels, INR, and electrolytes. Labs ordered for further monitoring. Patient is improving with avoidance of alcohol Alcoholic hepatitis liver failure Transaminitis Alcohol abuse GI bleed Coagulopathy from liver disease Follow up LFTs Patient recommended to stop drinking No acute interventions needed on an EGD exam results Follow INR Follow PTT Monitor for bleeding status post EGD If CBC remains stable tomorrow we'll consider discharge Delirium tremens Continue CIWA protocol Scheduled Librium Continue thiamine Continue folic acid Continue multivitamin Hyponatremia Likely from excess alcohol consumption Follow sodium level Avoid alcohol abuse DVT prophylaxis SCDs Avoiding blood thinners secondary to active bleed Gt Cannon MD Apr 13, 2017 13:38
--- NOTE | 2017-04-13 17:22 | HHI.GIFU ---
Subjective Remarks Pt sitting up in bed on his computer. Denies nausea, vomiting, abdominal pain. Reports 2 BMs this morning, first one was loose second one was more formed. (Racheal Snow) Objective Vitals I&O Vital Signs Date Time Temp Pulse Resp B/P (MAP) Pulse Ox O2 Delivery O2 Flow Rate FiO2 04/13/17 16:00 97.7 89 20 99/62 (74) 94 04/13/17 12:51 83 04/13/17 12:33 96.9 81 18 101/62 (75) 04/13/17 12:00 96.9 81 18 88/53 (65) 92 04/13/17 09:06 17 04/13/17 08:30 86 04/13/17 08:30 93 Room Air 04/13/17 08:00 96.6 77 18 106/53 (70) 93 04/13/17 04:00 96.1 77 20 102/60 (74) 96 04/13/17 00:00 96.0 70 20 101/71 (81) 94 04/12/17 20:00 96.7 90 22 104/67 (79) 94 I/O 04/12/17 04/12/17 04/12/17 04/13/17 04/13/17 04/13/17 07:00 15:00 23:00 07:00 15:00 23:00 Intake Total 360 ml 520 ml 460 ml Balance 360 ml 520 ml 460 ml Intake Oral 360 ml 420 ml 360 ml IV Total 100 ml 100 ml # Voids 3 1 3 # Bowel Movements 0 0 1 Laboratory Laboratory Tests Test 04/13/17 05:59 White Blood Count 9.5 Red Blood Count 3.41 Hemoglobin 12.7 Hematocrit 35.8 Mean Corpuscular Volume 105.1 Mean Corpuscular Hemoglobin 37.1 Mean Corpuscular Hemoglobin Concent 35.3 Red Cell Distribution Width 15.3 Platelet Count 174 Mean Platelet Volume 8.3 Neutrophils (%) (Auto) 79.4 Lymphocytes (%) (Auto) 10.6 Monocytes (%) (Auto) 9.7 Eosinophils (%) (Auto) 0.1 Basophils (%) (Auto) 0.2 Neutrophils # (Auto) 7.5 Lymphocytes # (Auto) 1.0 Monocytes # (Auto) 0.9 Eosinophils # (Auto) 0.0 Basophils # (Auto) 0.0 CBC Comment AUTO DIFF Differential Comment AUTO DIFF CONFIRMED Platelet Estimate NORMAL Platelet Morphology Comment NORMAL Target Cells 1+ Prothrombin Time 15.9 Prothromb Time International Ratio 1.6 Blood Urea Nitrogen 13 Creatinine 0.68 Random Glucose 82 Total Protein 4.9 Albumin 2.3 Calcium Level 7.4 Alkaline Phosphatase 209 Aspartate Amino Transf (AST/SGOT) 267 Alanine Aminotransferase (ALT/SGPT) 135 Total Bilirubin 17.6 Sodium Level 136 Potassium Level 3.3 Chloride Level 98 Carbon Dioxide Level 28.7 Anion Gap 9 Estimat Glomerular Filtration Rate 125 Protein Corrected Calcium 8.6 Imaging Last Impressions Abdomen Ultrasound 04/09/17 0000 Signed Impressions: Service Date/Time: Sunday, April 09, 2017 07:51 - CONCLUSION: Hepatosplenomegaly with diffuse probable hepatic steatosis. Minimal nonspecific fluid adjacent to the gallbladder. No gallstones. Facundo Jimenez MD Chest X-Ray 04/08/17 1536 Signed Impressions: Service Date/Time: Saturday, April 08, 2017 15:47 - CONCLUSION: No acute disease. No significant change has occurred. Sekou Gibbs MD Abdomen/Pelvis CT 04/08/17 1536 Signed Impressions: Service Date/Time: Saturday, April 08, 2017 17:22 - CONCLUSION: Minimal gallbladder wall enhancement, nonspecific Jasiel infiltration in the liver Papo Arthur MD FACR Physical Exam HEENT: Normocephalic; atraumatic; (+) icterus CHEST: CTA CARDIAC: RRR ABDOMEN: Soft, distended, nontender, bowel sounds active EXTREMITIES: No clubbing, cyanosis, or edema. SKIN: Normal; no rash; (+) jaundice CONTENT MANAGER: Alert and oriented x 3 (Racheal Snow COVERING MACHINE OPERATOR) Assessment and Plan Plan ASSESSMENT - Elevated LFTs- likely secondary to alcoholic hepatitis. hx heavy drinking, quit 1 week ago when he became jaundiced Evaluated by our service 09/2015 and had normal EGD, liver w/u, and colonoscopy with poor prep& hemorrhoids. Hx cirrhosis. DF 101. MELD 30 US 04/09/17 showed no ascites, liver dz, hepatosplenomegaly. CT shows min GB wall enhancement. LFTs currently AST-267 ALT-135 Alk phos-209 T bili-17.6 Ammonia last checked Apr 09 was 70. Pt remains on Solumedrol Pentoxifylline, Rifaximin. - Heme pos stool - H/H WNL. Macrocytic. EGD done on 04/10/17 showing Portal gastropathy, no varices hiatal hernia Plan: - Continue to monitor labs - Recheck ammonia - Continue Lactulose - Continue Pentoxifylline - Continue Rifaximin - Continue Solumedrol - DC Protonix gtt- can be BID - Supportive care - ETOH cessation This patient has been seen and examined by myself and Dr. Tejada and this note is written on her behalf (Racheal Snow) Physician Comments agree with above (Lauren Tejada MD) Racheal Snow Apr 13, 2017 17:22 Lauren Tejada MD Apr 13, 2017 18:41
[2017-04-13] MEDS: PANTOPRAZOLE SODIUM 40 MG VIAL IV PUSH SCH (18:26)
[2017-04-14] VITALS (7 sets, daily range): BP systolic 92–108; BP diastolic 61–69; PULSE 73–92; RESP 16–18; TEMP 95.7–96.8; O2SAT 90–95
[2017-04-14 03:50] LABS: MITOCHONDRIAL ABS LESS THAN 20.0 U (<=20.0)
[2017-04-14] MEDS: PANTOPRAZOLE SODIUM 40 MG VIAL IV PUSH SCH ×2 (06:17→17:41)
[2017-04-14] MEDS: PENTOXIFYLLINE 400 MG CONTROLLED RELEASE TAB PO SCH ×3 (06:17→20:49)
[2017-04-14 07:25] LABS: INTERNATIONAL NORMALIZED RATIO 1.6 RATIO; PROTHROMBIN TIME - PATIENT 15.8 SEC (9.8-11.6)
[2017-04-14 07:33] LABS: AUTOMATED NEUTROPHIL # 9.3 TH/MM3 (1.8-7.7); BASOPHIL % 0.3 % (0.0-2.0); EOSINOPHIL % 0.2 % (0.0-4.0); HEMATOCRIT 36.6 % (39.0-51.0); LYMPH % 10.6 % (9.0-44.0); LYMPHOCYTE # 1.2 TH/MM3 (1.0-4.8); MEAN CELL VOLUME 104.8 FL (80.0-100.0); MEAN CORPUSCULAR HEMOGLOBIN 37.4 PG (27.0-34.0); MEAN CORPUSCULAR HGB CONC 35.6 % (32.0-36.0); MEAN PLATELET VOLUME 8.6 FL (7.0-11.0); MONO % 7.6 % (0.0-8.0); MONOCYTE # 0.9 TH/MM3 (0-0.9); NEUT % 81.3 % (16.0-70.0); PLATELET COUNT 199 TH/MM3 (150-450); RED BLOOD COUNT 3.49 MIL/MM3 (4.50-5.90); RED CELL DISTRIBUTION WIDTH 15.2 % (11.6-17.2); WHITE BLOOD COUNT 11.4 TH/MM3 (4.0-11.0)
[2017-04-14 07:45] LABS: ALBUMIN 2.3 GM/DL (3.4-5.0); ALT (GPT) 174 U/L (12-78); AST (GOT) 304 U/L (15-37); BICARBONATE 28.6 MEQ/L (21.0-32.0); BLOOD UREA NITROGEN 11 MG/DL (7-18); CALCIUM 7.5 MG/DL (8.5-10.1); CHLORIDE 98 MEQ/L (98-107); CREATININE 0.82 MG/DL (0.60-1.30); GLOMERULAR FILTRATION RATE 101 ML/MIN (>89); GLUCOSE,RANDOM 84 MG/DL (74-106); SODIUM (NA) 135 MEQ/L (136-145)
[2017-04-14 07:48] LABS: ALKALINE PHOSPHATASE 222 U/L (45-117); TOTAL BILIRUBIN ADULT 18.4 MG/DL (0.2-1.0)
[2017-04-14] MEDS: LORazepam 2 MG TAB PO PRN (08:41)
[2017-04-14] MEDS: MULTIVITAMINS/MINERALS THERAPEUTIC TAB PO SCH (08:42)
[2017-04-14] MEDS: RIFAXIMIN 550 MG TAB PO SCH ×2 (08:42→20:49)
[2017-04-14] MEDS: methylPREDNISolone SOD SUCC 40 MG/1 ML VIAL IV PUSH SCH (08:42)
[2017-04-14] MEDS: THIAMINE HCL 100 MG TAB PO SCH (08:42)
--- NOTE | 2017-04-14 15:00 | HHI.PR ---
Subjective Remarks Bilirubin level and LFTs are slightly increased today. He has a continued upward trend in his hemoglobin which has normalized now. His INR is steady at 1.6. Presently his lab work does not prevent him from discharge but he is continuing to have delirium tremens. Objective Vital Signs Date Time Temp Pulse Resp B/P (MAP) Pulse Ox O2 Delivery O2 Flow Rate FiO2 04/14/17 12:00 95.7 78 18 97/65 (76) 93 04/14/17 08:40 73 04/14/17 08:40 90 Nasal Cannula 2.00 04/14/17 08:00 96.1 74 18 92/61 (71) 90 04/14/17 04:00 96.3 80 18 108/69 (82) 93 04/14/17 00:00 96.4 92 18 100/62 (75) 94 04/13/17 20:00 96.8 84 16 100/64 (76) 93 04/13/17 16:00 81 04/13/17 16:00 97.7 89 20 99/62 (74) 94 I/O 04/13/17 04/13/17 04/13/17 04/14/17 04/14/17 04/14/17 07:00 15:00 23:00 07:00 15:00 23:00 Intake Total 460 ml 1200 ml 360 ml Balance 460 ml 1200 ml 360 ml Intake Oral 360 ml 1200 ml 360 ml IV Total 100 ml # Voids 3 3 1 # Bowel Movements 1 1 0 Result Diagram: 04/14/17 0705 04/14/17 0705 Objective Remarks GENERAL: NAD, A&Ox3 HEAD: Normocephalic. NECK: Supple, trachea midline. No lymphadenopathy. EYES: No scleral icterus. No injection or drainage. Scleral jaundice. CARDIOVASCULAR: Regular rate and rhythm without murmurs, gallops, or rubs. RESPIRATORY: Breath sounds equal bilaterally. No accessory muscle use. GASTROINTESTINAL: Abdomen soft, non-tender, nondistended. MUSCULOSKELETAL: No cyanosis, or edema. SKIN: Warm and dry. Jaundice. NEURO: No focal neurological deficitis. A/P Problem List: (1) Heme positive stool ICD Code: R19.5 - Other fecal abnormalities (2) Elevated liver enzymes ICD Code: R74.8 - Abnormal levels of other serum enzymes Status: Acute (3) Scleral icterus ICD Code: R17 - Unspecified jaundice (4) Jaundice ICD Code: R17 - Unspecified jaundice (5) Coagulopathy ICD Code: D68.9 - Coagulation defect, unspecified (6) Alcohol abuse ICD Code: F10.10 - Alcohol abuse, uncomplicated Status: Chronic (7) Elevated LFTs ICD Code: R79.89 - Other specified abnormal findings of blood chemistry Status: Acute (8) Hyponatremia ICD Code: E87.1 - Hypo-osmolality and hyponatremia Status: Resolved Assessment and Plan 46-year-old male with a history of amoebic liver abscess, liver disease, alcohol abuse, anxiety, depression, GERD, hypertension, chronic back pain, and nephrolithiasis who presented to the emergency room on 04/08/2017 complaining of progressively worsening scleral icterus and jaundice as well as abdominal pain. Labs reviewed. Continue to monitor hyperbilirubinemia, hemoglobin levels, INR, and electrolytes. Labs ordered for further monitoring. Patient is improving with avoidance of alcohol. Continue to manage delirium tremens and wean from benzodiazepines as tolerated. Once she is weaned off benzodiazepines he will likely be stable for discharge. Alcoholic hepatitis liver failure Transaminitis Alcohol abuse GI bleed Coagulopathy from liver disease Follow up LFTs Patient recommended to stop drinking No acute interventions needed on an EGD exam results Follow INR Follow PTT Monitor for bleeding status post EGD If CBC remains stable tomorrow we'll consider discharge Delirium tremens Continue CIWA protocol Scheduled Librium Continue thiamine Continue folic acid Continue multivitamin Hyponatremia Likely from excess alcohol consumption Follow sodium level Avoid alcohol abuse DVT prophylaxis SCDs Avoiding blood thinners secondary to active bleed Gt Cannon MD Apr 14, 2017 15:00
[2017-04-14] MEDS: LORazepam 1 MG TAB PO PRN ×2 (16:23→20:50)
--- NOTE | 2017-04-14 16:50 | HHI.GIFU ---
Subjective Remarks Pt resting in bed watching TV, in no apparent distress. Denies any GI complaints at this time. Tolerating diet. Denies nausea, vomiting, abdominal pain. Reports 2 BMs today. (Racheal Snow) Objective Vitals I&O Vital Signs Date Time Temp Pulse Resp B/P (MAP) Pulse Ox O2 Delivery O2 Flow Rate FiO2 04/14/17 14:46 18 04/14/17 12:00 95.7 78 18 97/65 (76) 93 04/14/17 08:40 73 04/14/17 08:40 90 Nasal Cannula 2.00 04/14/17 08:00 96.1 74 18 92/61 (71) 90 04/14/17 04:00 96.3 80 18 108/69 (82) 93 04/14/17 00:00 96.4 92 18 100/62 (75) 94 04/13/17 20:00 96.8 84 16 100/64 (76) 93 I/O 04/13/17 04/13/17 04/13/17 04/14/17 04/14/17 04/14/17 07:00 15:00 23:00 07:00 15:00 23:00 Intake Total 460 ml 1200 ml 360 ml Balance 460 ml 1200 ml 360 ml Intake Oral 360 ml 1200 ml 360 ml IV Total 100 ml # Voids 3 3 1 # Bowel Movements 1 1 0 Laboratory Laboratory Tests Test 04/14/17 07:05 White Blood Count 11.4 Red Blood Count 3.49 Hemoglobin 13.0 Hematocrit 36.6 Mean Corpuscular Volume 104.8 Mean Corpuscular Hemoglobin 37.4 Mean Corpuscular Hemoglobin Concent 35.6 Red Cell Distribution Width 15.2 Platelet Count 199 Mean Platelet Volume 8.6 Neutrophils (%) (Auto) 81.3 Lymphocytes (%) (Auto) 10.6 Monocytes (%) (Auto) 7.6 Eosinophils (%) (Auto) 0.2 Basophils (%) (Auto) 0.3 Neutrophils # (Auto) 9.3 Lymphocytes # (Auto) 1.2 Monocytes # (Auto) 0.9 Eosinophils # (Auto) 0.0 Basophils # (Auto) 0.0 CBC Comment DIFF FINAL Differential Comment Prothrombin Time 15.8 Prothromb Time International Ratio 1.6 Blood Urea Nitrogen 11 Creatinine 0.82 Random Glucose 84 Total Protein 5.0 Albumin 2.3 Calcium Level 7.5 Alkaline Phosphatase 222 Aspartate Amino Transf (AST/SGOT) 304 Alanine Aminotransferase (ALT/SGPT) 174 Total Bilirubin 18.4 Sodium Level 135 Potassium Level 3.3 Chloride Level 98 Carbon Dioxide Level 28.6 Anion Gap 8 Estimat Glomerular Filtration Rate 101 Ammonia 37 Imaging Last Impressions Abdomen Ultrasound 04/09/17 0000 Signed Impressions: Service Date/Time: Sunday, April 09, 2017 07:51 - CONCLUSION: Hepatosplenomegaly with diffuse probable hepatic steatosis. Minimal nonspecific fluid adjacent to the gallbladder. No gallstones. Facundo Jimenez MD Chest X-Ray 04/08/17 1536 Signed Impressions: Service Date/Time: Saturday, April 08, 2017 15:47 - CONCLUSION: No acute disease. No significant change has occurred. Sekou Gibbs MD Abdomen/Pelvis CT 04/08/17 1536 Signed Impressions: Service Date/Time: Saturday, April 08, 2017 17:22 - CONCLUSION: Minimal gallbladder wall enhancement, nonspecific Jasiel infiltration in the liver Papo Arthur MD FACR Physical Exam HEENT: Normocephalic; atraumatic; (+) icterus CHEST: CTA CARDIAC: RRR ABDOMEN: Soft, distended, nontender, bowel sounds active EXTREMITIES: No clubbing, cyanosis, or edema. 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 hx heavy drinking, quit 1 week ago when he became jaundiced Evaluated by our service 09/2015 and had normal EGD, liver w/u, and colonoscopy with poor prep& hemorrhoids. Hx cirrhosis. DF 101. MELD 30 US 04/09/17 showed no ascites, liver dz, hepatosplenomegaly. CT shows min GB wall enhancement. LFTs currently AST-267 ALT-135 Alk phos-209 T bili-17.6 Ammonia last checked Apr 09 was 70. Pt remains on Solumedrol Pentoxifylline, Rifaximin. - Heme pos stool - H/H WNL. Macrocytic. EGD done on 04/10/17 showing Portal gastropathy, no varices hiatal hernia (04/14) LFTs slightly more elevated today. AST-304 ALT-174 Alk phos-222 T bili- 18.4. Improvement in ammonia, now 37. Clinically pt is improving. Plan: - JEVON - Continue to monitor labs - Recheck ammonia - Continue Lactulose - Continue Pentoxifylline - Continue Rifaximin - Continue Solumedrol - Protonix BID - Supportive care - ETOH cessation This patient has been seen and examined by myself and Dr. Tejada and this note is written on her behalf (Racheal Snow) Physician Comments seen, examined agree with above if stable may d/c home in 1-2 days consider detox program upon dc patient educated (Lauren Tejada MD) Racheal Snow Apr 14, 2017 16:50 Lauren Tejada MD Apr 14, 2017 18:05
[2017-04-15] VITALS: BP 100/64; PULSE 84; RESP 18; TEMP 96.6; O2SAT 95
[2017-04-15 04:01] VITALS: BP 101/62; PULSE 70; RESP 16; TEMP 96.5; O2SAT 96
[2017-04-15] MEDS: PANTOPRAZOLE SODIUM 40 MG VIAL IV PUSH SCH ×2 (04:36→18:00)
[2017-04-15] MEDS: PENTOXIFYLLINE 400 MG CONTROLLED RELEASE TAB PO SCH ×3 (04:36→19:58)
[2017-04-15 08:00] VITALS: BP 90/54; PULSE 75; RESP 16; TEMP 97.7; O2SAT 94
[2017-04-15] MEDS: RIFAXIMIN 550 MG TAB PO SCH ×2 (08:46→19:58)
[2017-04-15] MEDS: THIAMINE HCL 100 MG TAB PO SCH (08:46)
[2017-04-15] MEDS: methylPREDNISolone SOD SUCC 40 MG/1 ML VIAL IV PUSH SCH (08:48)
[2017-04-15] MEDS: SODIUM CHLORIDE 0.9% FLUSH 10 ML FLUSH IV FLUSH PRN (08:49)
[2017-04-15 12:00] VITALS: BP 103/56; PULSE 85; RESP 16; TEMP 96.8; O2SAT 92
[2017-04-15] MEDS: LORazepam 1 MG TAB PO PRN (12:31)
[2017-04-15 16:00] VITALS: BP 102/55; PULSE 73; RESP 18; TEMP 97.5; O2SAT 92
--- NOTE | 2017-04-15 16:36 | HHI.GIFU ---
Subjective Remarks Pt sitting up in bed in NAD. no GI complaints. 2 x BM today. (Lisa Baca) Objective Vitals I&O Vital Signs Date Time Temp Pulse Resp B/P (MAP) Pulse Ox O2 Delivery O2 Flow Rate FiO2 04/15/17 04:01 96.5 70 16 101/62 (75) 96 04/15/17 00:00 96.6 84 18 100/64 (76) 95 04/14/17 20:00 96.1 79 16 101/66 (78) 95 I/O 04/14/17 04/14/17 04/14/17 04/15/17 04/15/17 04/15/17 07:00 15:00 23:00 07:00 15:00 23:00 Intake Total 360 ml 960 ml 720 ml Balance 360 ml 960 ml 720 ml Intake Oral 360 ml 960 ml 720 ml # Voids 1 3 2 # Bowel Movements 0 2 Laboratory Laboratory Tests Test 04/08/17 16:00 04/08/17 22:37 04/09/17 05:14 04/09/17 22:05 Activated Partial Thromboplast Time 35.4 SEC Lipase 110 U/L Urine Color DARK-BROWN Urine Turbidity CLEAR Urine pH 7.0 Urine Specific [place] GREATER THAN 1.050 Urine Protein 100 mg/dL Urine Glucose (UA) NEG mg/dL Urine Ketones TRACE mg/dL Urine Occult Blood NEG Urine Nitrite NEG Urine Bilirubin LARGE Urine Urobilinogen 4.0 MG/DL Urine Leukocyte Esterase NEG Urine RBC 20 /hpf Urine WBC 2 /hpf Microscopic Urinalysis Comment CULT NOT INDICATED Blood Urea Nitrogen 8 MG/DL Creatinine 0.70 MG/DL Random Glucose 86 MG/DL Total Protein 5.4 GM/DL Albumin 2.7 GM/DL Calcium Level 8.2 MG/DL Alkaline Phosphatase 240 U/L Aspartate Amino Transf (AST/SGOT) 284 U/L Alanine Aminotransferase (ALT/SGPT) 93 U/L Total Bilirubin 20.1 MG/DL Direct Bilirubin 15.7 MG/DL Sodium Level 129 MEQ/L Potassium Level 2.9 MEQ/L Chloride Level 90 MEQ/L Carbon Dioxide Level 30.1 MEQ/L Indirect Bilirubin 4.4 MG/DL Iron Level 87 MCG/DL Nfkws-1-Osrontfilkj 231 mg/dL Ceruloplasmin 34 mg/dL Immunoglobulin A 497 mg/dL Anti-Nuclear Antibody Screen NEG Mitochondria M2 Antibody LESS THAN 20.0 U Anti-Smooth Muscle Antibody Negative Endomysial Antibody Titer Endomysial IgA Antibody Tissue Transglutaminase IgG Ab U/mL Tissue Transglutaminase IgA Ab LESS THAN 1 U/mL Celiac Disease Interpretation Hepatitis A IgM Antibody NEGATIVE Hepatitis B Surface Antigen NEGATIVE Hepatitis B Core IgM Antibody NEGATIVE Hepatitis C Antibody NEGATIVE Test 04/13/17 05:59 04/14/17 07:05 Platelet Estimate NORMAL Platelet Morphology Comment NORMAL Target Cells 1+ Protein Corrected Calcium 8.6 MG/DL White Blood Count 11.4 TH/MM3 Red Blood Count 3.49 MIL/MM3 Hemoglobin 13.0 GM/DL Hematocrit 36.6 % Mean Corpuscular Volume 104.8 FL Mean Corpuscular Hemoglobin 37.4 PG Mean Corpuscular Hemoglobin Concent 35.6 % Red Cell Distribution Width 15.2 % Platelet Count 199 TH/MM3 Mean Platelet Volume 8.6 FL Neutrophils (%) (Auto) 81.3 % Lymphocytes (%) (Auto) 10.6 % Monocytes (%) (Auto) 7.6 % Eosinophils (%) (Auto) 0.2 % Basophils (%) (Auto) 0.3 % Neutrophils # (Auto) 9.3 TH/MM3 Lymphocytes # (Auto) 1.2 TH/MM3 Monocytes # (Auto) 0.9 TH/MM3 Eosinophils # (Auto) 0.0 TH/MM3 Basophils # (Auto) 0.0 TH/MM3 CBC Comment DIFF FINAL Differential Comment Prothrombin Time 15.8 SEC Prothromb Time International Ratio 1.6 RATIO Blood Urea Nitrogen 11 MG/DL Creatinine 0.82 MG/DL Random Glucose 84 MG/DL Total Protein 5.0 GM/DL Albumin 2.3 GM/DL Calcium Level 7.5 MG/DL Alkaline Phosphatase 222 U/L Aspartate Amino Transf (AST/SGOT) 304 U/L Alanine Aminotransferase (ALT/SGPT) 174 U/L Total Bilirubin 18.4 MG/DL Sodium Level 135 MEQ/L Potassium Level 3.3 MEQ/L Chloride Level 98 MEQ/L Carbon Dioxide Level 28.6 MEQ/L Anion Gap 8 MEQ/L Estimat Glomerular Filtration Rate 101 ML/MIN Ammonia 37 MCMOL/L Imaging Last Impressions Abdomen Ultrasound 04/09/17 0000 Signed Impressions: Service Date/Time: Sunday, April 09, 2017 07:51 - CONCLUSION: Hepatosplenomegaly with diffuse probable hepatic steatosis. Minimal nonspecific fluid adjacent to the gallbladder. No gallstones. Facundo Jimenez MD Chest X-Ray 04/08/17 1536 Signed Impressions: Service Date/Time: Saturday, April 08, 2017 15:47 - CONCLUSION: No acute disease. No significant change has occurred. Sekou Gibbs MD Abdomen/Pelvis CT 04/08/17 1536 Signed Impressions: Service Date/Time: Saturday, April 08, 2017 17:22 - CONCLUSION: Minimal gallbladder wall enhancement, nonspecific Jasiel infiltration in the liver Papo Arthur MD FACR Physical Exam HEENT: Normocephalic; atraumatic; (+) icterus CHEST: CTA CARDIAC: RRR ABDOMEN: Soft, distended, nontender, bowel sounds active EXTREMITIES: No clubbing, cyanosis, or edema. 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 hx heavy drinking, quit 1 week ago when he became jaundiced Evaluated by our service 09/2015 and had normal EGD, liver w/u, and colonoscopy with poor prep& hemorrhoids. Hx cirrhosis. DF 101. MELD 30 US 04/09/17 showed no ascites, liver dz, hepatosplenomegaly. CT shows min GB wall enhancement. Pt remains on Solumedrol, Pentoxifylline, Rifaximin. per primary still in DTs, can be d/c when DTs improved and pt weaned off benzos LFTS remain elevated, relatively stable - Heme pos stool - H/H WNL. Macrocytic. EGD done on 04/10/17 showing Portal gastropathy, no varices, hiatal hernia Plan: - JEVON - Continue to monitor labs - Recheck ammonia - Continue Lactulose - Continue Pentoxifylline - Continue Rifaximin - Continue Solumedrol - can switch to PO prednisone on d/c - Protonix BID - Supportive care - ETOH cessation This patient has been seen and examined by myself and Dr. Peña and this note is on his behalf (Lisa Baca) Physician Comments Patient seen and examined Agree with above Continue with current supportive care Monitor labs (Nimesh Peña MD) Lisa Baca Apr 15, 2017 16:36 Nimesh Peña MD Apr 15, 2017 23:53
--- NOTE | 2017-04-15 17:17 | HHI.PR ---
Subjective Remarks Follow-up for alcoholism, alcoholic hepatitis. Patient is currently doing well. No withdrawal symptoms however later on he reported that he is experiencing anxiety and panic. No chest pain, shortness of breath, fever or chills. Objective Vitals Vital Signs Date Time Temp Pulse Resp B/P (MAP) Pulse Ox O2 Delivery O2 Flow Rate FiO2 04/15/17 04:01 96.5 70 16 101/62 (75) 96 04/15/17 00:00 96.6 84 18 100/64 (76) 95 04/14/17 20:00 96.1 79 16 101/66 (78) 95 I/O 04/14/17 04/14/17 04/14/17 04/15/17 04/15/17 04/15/17 06:59 14:59 22:59 06:59 14:59 22:59 Intake Total 360 ml 960 ml 720 ml Balance 360 ml 960 ml 720 ml Intake Oral 360 ml 960 ml 720 ml # Voids 1 3 2 # Bowel Movements 0 2 Result Diagram: 04/14/17 0705 04/14/17 0705 Imaging Last Impressions Abdomen Ultrasound 04/09/17 0000 Signed Impressions: Service Date/Time: Sunday, April 09, 2017 07:51 - CONCLUSION: Hepatosplenomegaly with diffuse probable hepatic steatosis. Minimal nonspecific fluid adjacent to the gallbladder. No gallstones. Facundo Jimenez MD Chest X-Ray 04/08/17 1536 Signed Impressions: Service Date/Time: Saturday, April 08, 2017 15:47 - CONCLUSION: No acute disease. No significant change has occurred. Sekou Gibbs MD Abdomen/Pelvis CT 04/08/17 1536 Signed Impressions: Service Date/Time: Saturday, April 08, 2017 17:22 - CONCLUSION: Minimal gallbladder wall enhancement, nonspecific Jasiel infiltration in the liver Papo Arthur MD FACR Objective Remarks GENERAL: Alert, oriented 3, NAD. SKIN: Warm and dry. HEAD: Normocephalic. EYES: No scleral icterus. No injection or drainage. NECK: Supple, trachea midline. No JVD or lymphadenopathy. CARDIOVASCULAR: Regular rate and rhythm without murmurs, gallops, or rubs. RESPIRATORY: Breath sounds equal bilaterally. No accessory muscle use. GASTROINTESTINAL: Abdomen soft, non-tender, nondistended. MUSCULOSKELETAL: No cyanosis, or edema. BACK: Nontender without obvious deformity. No CVA tenderness. Procedures EGD 04/10/2017 1. Portal gastropathy no varices no bleeding 2. Retroflexed views revealed a hiatal hernia A/P Problem List: (1) Elevated liver enzymes ICD Code: R74.8 - Abnormal levels of other serum enzymes Status: Acute (2) Hyponatremia ICD Code: E87.1 - Hypo-osmolality and hyponatremia Status: Resolved (3) Alcohol abuse ICD Code: F10.10 - Alcohol abuse, uncomplicated Status: Chronic (4) Jaundice ICD Code: R17 - Unspecified jaundice (5) Scleral icterus ICD Code: R17 - Unspecified jaundice (6) Coagulopathy ICD Code: D68.9 - Coagulation defect, unspecified Assessment and Plan 46-year-old male with a history of amoebic liver abscess, liver disease, alcohol abuse, anxiety, depression, GERD, hypertension, chronic back pain, and nephrolithiasis who presented to the emergency room on 04/08/2017 complaining of progressively worsening scleral icterus and jaundice as well as abdominal pain. Labs reviewed. Continue to monitor hyperbilirubinemia, hemoglobin levels, INR, and electrolytes. Labs ordered for further monitoring. Patient is improving with avoidance of alcohol. Continue to manage delirium tremens and wean from benzodiazepines as tolerated. Once she is weaned off benzodiazepines he will likely be stable for discharge. Alcoholic hepatitis Alcohol abuse GI bleed LFTs remain elevated. INR 1.6 Patient recommended to stop drinking No acute interventions needed on an EGD exam results Monitor for bleeding status post EGD Maddrey's discrimination function score is well above 32. This patient's score was over 118. On 04/15/2017, this Discrimination factor is still 45.1. Will switch Solu-medrol to Prednisolone 40mg Qday X 28 days in anticipation for discharge. Delirium tremens Continue CIWA protocol Scheduled Librium, increase dose from 5mg to 10mg TID. Continue thiamine Continue folic acid Continue multivitamin Hyponatremia Likely from excess alcohol consumption Follow sodium level Avoid alcohol abuse Hypocalcemia - Ca+ 7.5. Hypokalemia - K+ 3.3. - Will replace with IV Calcium gluconate 1g and KCL 20mEQ BID X 3 days. DVT prophylaxis SCDs Probable discharge in the AM. Arabella Hussein DO Apr 15, 2017 5:17 pm
[2017-04-15] MEDS ORDERED: CALCIUM GLUCONATE INJ 1 GM in SODIUM CHLORIDE 0.9% INJ 100 ML IV ONE (18:00)
[2017-04-15] MEDS: POTASSIUM CHLORIDE 20 MEQ CONTROLLED RELEASE TAB PO SCH (19:58)
[2017-04-15 20:00] VITALS: BP 101/64; PULSE 77; PULSE 78; RESP 18; TEMP 97.8; O2SAT 94
[2017-04-15] MEDS: ONDANSETRON HCL 4 MG/2 ML VIAL IVP PRN (23:54)
[2017-04-16] VITALS: BP 110/62; PULSE 81; RESP 16; TEMP 96.2; O2SAT 95
[2017-04-16] MEDS: LORazepam 2 MG TAB PO PRN (01:54)
[2017-04-16 04:00] VITALS: BP 108/66; PULSE 70; RESP 18; TEMP 96.1; O2SAT 92
[2017-04-16] MEDS: PENTOXIFYLLINE 400 MG CONTROLLED RELEASE TAB PO SCH (04:58)
[2017-04-16] MEDS: PANTOPRAZOLE SODIUM 40 MG VIAL IV PUSH SCH (04:58)
[2017-04-16 08:00] VITALS: BP 90/58; PULSE 77; RESP 18; TEMP 96.3; O2SAT 94
[2017-04-16 08:20] VITALS: PULSE 74
[2017-04-16] MEDS: THIAMINE HCL 100 MG TAB PO SCH (08:23)
[2017-04-16] MEDS: RIFAXIMIN 550 MG TAB PO SCH (08:23)
[2017-04-16] MEDS: POTASSIUM CHLORIDE 20 MEQ CONTROLLED RELEASE TAB PO SCH (08:23)
[2017-04-16 08:36] LABS: AUTOMATED NEUTROPHIL # 12.2 TH/MM3 (1.8-7.7); BASOPHIL % 0.2 % (0.0-2.0); EOSINOPHIL % 0.2 % (0.0-4.0); HEMOGLOBIN 14.1 GM/DL (13.0-17.0); LYMPH % 9.9 % (9.0-44.0); LYMPHOCYTE # 1.4 TH/MM3 (1.0-4.8); MEAN CELL VOLUME 106.9 FL (80.0-100.0); MEAN CORPUSCULAR HEMOGLOBIN 36.8 PG (27.0-34.0); MEAN CORPUSCULAR HGB CONC 34.4 % (32.0-36.0); MEAN PLATELET VOLUME 8.8 FL (7.0-11.0); MONO % 5.5 % (0.0-8.0); MONOCYTE # 0.8 TH/MM3 (0-0.9); NEUT % 84.2 % (16.0-70.0); PLATELET COUNT 200 TH/MM3 (150-450); RED BLOOD COUNT 3.84 MIL/MM3 (4.50-5.90); RED CELL DISTRIBUTION WIDTH 15.8 % (11.6-17.2); WHITE BLOOD COUNT 14.5 TH/MM3 (4.0-11.0)
[2017-04-16 08:55] LABS: INTERNATIONAL NORMALIZED RATIO 1.5 RATIO; PROTHROMBIN TIME - PATIENT 14.7 SEC (9.8-11.6)
[2017-04-16] MEDS ORDERED: prednisoLONE ALCOHOL/DYE FREE 15 MG/5 ML ORAL SYR PO SCH (09:00)
[2017-04-16 09:03] LABS: ALBUMIN 2.6 GM/DL (3.4-5.0); AST (GOT) 356 U/L (15-37); BICARBONATE 26.2 MEQ/L (21.0-32.0); BLOOD UREA NITROGEN 12 MG/DL (7-18); CALCIUM 8.1 MG/DL (8.5-10.1); CHLORIDE 97 MEQ/L (98-107); CREATININE 0.82 MG/DL (0.60-1.30); GLOMERULAR FILTRATION RATE 101 ML/MIN (>89); GLUCOSE,RANDOM 72 MG/DL (74-106); SODIUM (NA) 135 MEQ/L (136-145)
[2017-04-16 09:04] LABS: ALT (GPT) 227 U/L (12-78)
[2017-04-16 09:07] LABS: ALKALINE PHOSPHATASE 242 U/L (45-117); TOTAL BILIRUBIN ADULT 21.2 MG/DL (0.2-1.0)
[2017-04-16 09:08] LABS: TOTAL PROTEIN 5.4 GM/DL (6.4-8.2)
[2017-04-16 10:36] LABS: TARGET CELLS 1+ (NORMAL)
[2017-04-16] MEDS ORDERED: XIFA550T4 PO (11:44)
[2017-04-16] MEDS ORDERED: PRED15UDC PO ×2 (11:44)
[2017-04-16] MEDS ORDERED: CHLO10CA5 PO (11:44)
[2017-04-16] MEDS ORDERED: OXYC-392 PO (11:48)
[2017-04-16 12:00] VITALS: BP 99/58; PULSE 80; RESP 16; TEMP 97.7; O2SAT 99
--- NOTE | 2017-04-16 22:35 | HHI.DS ---
Discharge Summary Admission Date Apr 08, 2017 at 18:57 Discharge Date: Apr 16, 2017 Admitting Diagnosis heme positive stools, abdominal pain and distention secondary to liver disease, hyponatremia (1) Alcoholic hepatitis ICD Code: K70.10 - Alcoholic hepatitis without ascites Diagnosis: Principal (2) Elevated liver enzymes ICD Code: R74.8 - Abnormal levels of other serum enzymes Status: Acute (3) Hyponatremia ICD Code: E87.1 - Hypo-osmolality and hyponatremia Status: Resolved (4) Alcohol abuse ICD Code: F10.10 - Alcohol abuse, uncomplicated Status: Chronic (5) Jaundice ICD Code: R17 - Unspecified jaundice (6) Scleral icterus ICD Code: R17 - Unspecified jaundice (7) Coagulopathy ICD Code: D68.9 - Coagulation defect, unspecified Procedures EGD 04/10/2017 1. Portal gastropathy no varices no bleeding 2. Retroflexed views revealed a hiatal hernia Brief History - From Admission Mr. Garay is a pleasant 46-year-old male with a history of amoebic liver abscess, liver disease, alcohol abuse, anxiety, depression, GERD, hypertension, chronic back pain, and nephrolithiasis who presented to the emergency room on 04/08/2017 complaining of progressively worsening scleral icterus and jaundice as well as abdominal pain. He was found to have a distended abdomen which was thought to be related to new onset ascites in the ED along with scleral icterus and jaundice and elevated LFTs. The patient is admitted with the hospitalist service to provide medical management of the above as well as patient's other chronic comorbidities. The patient is seen in the CDU. He reports upper abdominal pain rated 5 out of 10 relieved with oral oxycodone. The pain in his back is described as squeezing in character and the pain all across the abdomen is described as sharp when he attempts to take deep breath and more of a pressure when he palpates the upper abdominal area. Pain is worse with attempted deep breathing. The patient states his symptoms began on 04/06/2017 which is when he first noted scleral icterus. By Saturday, he noticed jaundice in bilateral hands and abdominal pain by Saturday night prompting visit to the emergency room. Abdominal/pelvis CT showed prominent gallbladder with minimal gallbladder enhancement. Chest x-ray was negative for acute process. INR elevated at 3.2. AST elevated at 269 with ALT elevated at 80. Sodium low at 1:30. CBC/BMP: 04/16/17 0646 04/16/17 0646 Significant Findings Laboratory Tests Test 04/14/17 07:05 04/16/17 06:46 White Blood Count 11.4 TH/MM3 (4.0-11.0) 14.5 TH/MM3 (4.0-11.0) Red Blood Count 3.49 MIL/MM3 (4.50-5.90) 3.84 MIL/MM3 (4.50-5.90) Hematocrit 36.6 % (39.0-51.0) Mean Corpuscular Volume 104.8 FL (80.0-100.0) 106.9 FL (80.0-100.0) Mean Corpuscular Hemoglobin 37.4 PG (27.0-34.0) 36.8 PG (27.0-34.0) Neutrophils (%) (Auto) 81.3 % (16.0-70.0) 84.2 % (16.0-70.0) Neutrophils # (Auto) 9.3 TH/MM3 (1.8-7.7) 12.2 TH/MM3 (1.8-7.7) Prothrombin Time 15.8 SEC (9.8-11.6) 14.7 SEC (9.8-11.6) Total Protein 5.0 GM/DL (6.4-8.2) 5.4 GM/DL (6.4-8.2) Albumin 2.3 GM/DL (3.4-5.0) 2.6 GM/DL (3.4-5.0) Calcium Level 7.5 MG/DL (8.5-10.1) 8.1 MG/DL (8.5-10.1) Alkaline Phosphatase 222 U/L (45-117) 242 U/L (45-117) Aspartate Amino Transf (AST/SGOT) 304 U/L (15-37) 356 U/L (15-37) Alanine Aminotransferase (ALT/SGPT) 174 U/L (12-78) 227 U/L (12-78) Total Bilirubin 18.4 MG/DL (0.2-1.0) 21.2 MG/DL (0.2-1.0) Sodium Level 135 MEQ/L (136-145) 135 MEQ/L (136-145) Potassium Level 3.3 MEQ/L (3.5-5.1) 3.3 MEQ/L (3.5-5.1) Ammonia 37 MCMOL/L (11-32) Target Cells 1+ (NORMAL) Random Glucose 72 MG/DL (74-106) Chloride Level 97 MEQ/L (98-107) Imaging Last Impressions Abdomen Ultrasound 04/09/17 0000 Signed Impressions: Service Date/Time: Sunday, April 09, 2017 07:51 - CONCLUSION: Hepatosplenomegaly with diffuse probable hepatic steatosis. Minimal nonspecific fluid adjacent to the gallbladder. No gallstones. Facundo Jimenez MD Chest X-Ray 04/08/17 1536 Signed Impressions: Service Date/Time: Saturday, April 08, 2017 15:47 - CONCLUSION: No acute disease. No significant change has occurred. Sekou Gibbs MD Abdomen/Pelvis CT 04/08/17 1536 Signed Impressions: Service Date/Time: Saturday, April 08, 2017 17:22 - CONCLUSION: Minimal gallbladder wall enhancement, nonspecific Jasiel infiltration in the liver Papo Arthur MD FACR PE at Discharge GENERAL: Alert, oriented 3, NAD. SKIN: Warm and dry. HEAD: Normocephalic. EYES: No scleral icterus. No injection or drainage. NECK: Supple, trachea midline. No JVD or lymphadenopathy. CARDIOVASCULAR: Regular rate and rhythm without murmurs, gallops, or rubs. RESPIRATORY: Breath sounds equal bilaterally. No accessory muscle use. GASTROINTESTINAL: Abdomen soft, non-tender, nondistended. MUSCULOSKELETAL: No cyanosis, or edema. BACK: Nontender without obvious deformity. No CVA tenderness. Pt update on day of discharge Patient was treated for alcoholic hepatitis. Patient is currently doing well. He is extensively counselled against using alcohol. He verbalized understanding. After discussing with GI, we discharged patient home. Hospital Course 46-year-old male with a history of amoebic liver abscess, liver disease, alcohol abuse, anxiety, depression, GERD, hypertension, chronic back pain, and nephrolithiasis who presented to the emergency room on 04/08/2017 complaining of progressively worsening scleral icterus and jaundice as well as abdominal pain. He underwent EGD and GI also evaluated patient for alcoholic hepatitis. His Meddrey's discrimination function (DF) was well over 100. He was given both pentoxifylline and Solu-medrol on admission. His INR gradually decreased. However, his total bilirubin remained high. I discussed with Dr. Terrell (GI) on the day of discharge. Given patient's decreasing INR, Dr. Terrell did feel that patient could be discharged home despite elevated AST, ALT, Total bilirubin. We continued patient on Prednisolone 40mg Qday x 28 days then two week taper. He was also given Librium to help with alcohol withdrawal. Patient was extensively counselled against using any alcohol as it may cause life threatening damage. He verbalized understanding. Patient was subsequently discharged home. Pt Condition on Discharge: Good Discharge Disposition: Discharge Home Discharge Time: > 30 minutes Discharge Instructions DIET: Follow Instructions for: As Tolerated, No Restrictions Activities you can perform: Regular-No Restrictions Follow up Referrals: Gastroenterology - 1 Week with Nimesh Peña MD PCP Follow-up - 1 Week New Medications: Oxycodone (Oxycodone) 5 Mg Tab 5 MG PO Q6H PRN for PAIN, #20 TAB 0 Refills Prednisolone Liq (Prednisolone Liq) 15 Mg/5 Ml Soln 10 MG PO DAILY for 15 Days, ML 0 Refills After 28 days of 40mg Qday dose, do the following taper: Prednisolone 30mg Qday X 4 days THEN 20mg Qday X 4 days THEN 10mg Qday X 4 days THEN 5 mg Qday X 3 days THEN STOP. Chlordiazepoxide HCl (Chlordiazepoxide HCl) 10 Mg Capsule 10 MG PO TID for Alcohol Detox, #21 TAB Prednisolone Liq (Prednisolone Liq) 15 Mg/5 Ml Soln 40 MG PO DAILY for Liver disease for 28 Days, #364 ML Rifaximin (Xifaxan) 550 Mg Tab 550 MG PO BID for Liver disease, #60 TAB 11 Refills Continued Medications: Folic Acid (Folic Acid) 0.4 Mg Tab 400 MCG PO DAILY for Nutritional Supplement, TAB 0 Refills Lactulose Liq (Lactulose Liq) 10 Gm/15 Ml Soln 30 ML PO Q6H PRN for CONSTIPATION, ML 0 Refills Thiamine (Vitamin B-1) 100 Mg Tab 100 MG PO DAILY for Nutritional Supplement, TAB 0 Refills Discontinued Medications: Pancrelipase (Creon) 12,000-38,000-60,000 Units Cap 1 CAP PO TIDPC for Digestive Aid, #90 CAP 0 Refills Arabella Hussein DO Apr 16, 2017 22:35
== END 2017-04-16 13:19 | disposition home or self-care (01) | DRG 433 ==
LOC: NEDAMB 14:58 → NEDA 18:57 → NEPGCP 20:45 → N07A 04-10 17:56 → UNDODISIN 04-10 18:43
PROVIDERS: ADMIT Hospitalist; ATTEND Hospitalist
PROC: 30233K1 Transfusion of Nonautologous Frozen Plasma into Peripheral Vein, Percutaneous Approach (ICD-10-PCS; 2017-04-10)
PROC: 0DJ08ZZ Inspection of Upper Intestinal Tract, Via Natural or Artificial Opening Endoscopic (ICD-10-PCS; principal; 2017-04-10 13:20)
DX: K70.11 Alcoholic hepatitis with ascites (principal); E87.1 Hypo-osmolality and hyponatremia; K70.0 Alcoholic fatty liver; F10.231 Alcohol dependence with withdrawal delirium; K72.90 Hepatic failure, unspecified without coma; D68.4 Acquired coagulation factor deficiency; K92.1 Melena; E83.51 Hypocalcemia; K21.9 Gastro-esophageal reflux disease without esophagitis; I10 Essential (primary) hypertension; K31.89 Other diseases of stomach and duodenum; K44.9 Diaphragmatic hernia without obstruction or gangrene; E87.6 Hypokalemia; M54.9 Dorsalgia, unspecified; G47.30 Sleep apnea, unspecified; F17.200 Nicotine dependence, unspecified, uncomplicated; F32.9 Major depressive disorder, single episode, unspecified; F41.9 Anxiety disorder, unspecified; Z23 Encounter for immunization; Z80.0 Family history of malignant neoplasm of digestive organs; Z87.442 Personal history of urinary calculi; Z81.1 Family history of alcohol abuse and dependence
CPT/HCPCS: 36430; 71045; 74177; 76700; 80048; 80053; 80074; 80076; 81001; 82103; 82140; 82390; 82784; 82948; 83516; 83520; 83540; 83690; 84132; 85025; 85027; 85610; 85730; 86038; 86255; 86850; 86900; 86901; 86920; 86927; 90686; 90732; 93005; 96374; 96375; C9113; J0330; J0610; J1100; J2060; J2270; J2405; J2920; J3430; J3480; J7120; J7510; P9017; Q2038; Q9967

== ENCOUNTER 2017-05-09 18:44 | Emergency (ER) | payer OTHER ==
[~2017-05-09] VITALS: Ht 185.4 cm; Wt 88.6 kg
[~2017-05-09 18:44] MED LIST changes: -BUME1TAB PO; +CHLO10CA5 PO; -FOLI1 PO; +FOLI400T PO; -HYDR25R RECTAL; -KCL10 PO; +LACT10SO PO; -LACT20SO4 PO; -LEVA750T PO; -METO25 PO; -OMPR20CCR PO; +OXYC-392 PO; +PRED15UDC PO; -RIFA550 PO; -SERO25TA PO; -SPIR25 PO; -THERM PO; -THIA100T PO; +VITA100T54 PO; -WALKER ROLLING; +XIFA550T4 PO
[2017-05-09 18:46] VITALS: BP 125/58; PULSE 106; RESP 18; TEMP 98.8; O2SAT 97
[2017-05-09] MEDS ORDERED: SPIR25TA PO (19:03)
[2017-05-09] MEDS ORDERED: AZIT250T3 PO (20:35)
[2017-05-09] MEDS ORDERED: OSEL75 PO (20:35)
--- NOTE | 2017-05-09 20:36 | PD ---
HPI Chief Complaint: Cold / Flu Symptoms Time Seen by Provider: 19:40 Travel History International Travel<30 days: No Contact w/Intl Traveler<30days: No Traveled to known affect area: No History of Present Illness HPI This is a 46-year-old male here with flulike illness 2 days. Patient is reporting body aches, cough, and possible fever. Symptom severity is mild to moderate. Patient reports he has noticed a yellow-colored sputum. He was recently hospitalized approximately 3 weeks ago for alcohol withdrawal a new onset ascites. He has been followed by GI since discharge. He had lab work done 2 days ago. He denies weight gain, increasing abdominal distention, abdominal pain, or shortness of breath. PFSH Past Medical History Arthritis: Yes (PAINFUL JOINTS) Asthma: No Autoimmune Disease: No Anxiety: Yes Depression: Yes Heart Rhythm Problems: No Cancer: No Cardiovascular Problems: Yes (HTN) High Cholesterol: Yes Chemotherapy: No Chest Pain: Yes Congestive Heart Failure: No COPD: No Cerebrovascular Accident: No Diabetes: No Diminished Hearing: No Endocrine: No Gastrointestinal Disorders: Yes GERD: Yes Genitourinary: Yes (kidney stones) Headaches: Yes Hiatal Hernia: Yes Hypertension: Yes Immune Disorder: No Implanted Vascular Access Dvce: Yes Kidney Stones: Yes Musculoskeletal: Yes (chronic back pain) Neurologic: No Psychiatric: Yes Reproductive: No Respiratory: No Migraines: Yes Radiation Therapy: No Renal Failure: No Seizures: No Sickle Cell Disease: No Sleep Apnea: Yes Thyroid Disease: No Ulcer: Yes ?: Not Past Surgical History Abdominal Surgery: Yes (umbilical hernia with mesh/ liver abcess operation) AICD: No Arteriovenous Shunt: No Body Medical Devices: gastric mesh, plate under eye Cardiac Surgery: No Ear Surgery: No Endocrine Surgery: No Eye Surgery: No Genitourinary Surgery: Yes (circumcission redone) Gynecologic Surgery: No Insulin Pump: No Joint Replacement: No Neurologic Surgery: Yes (plate placed under eye-LEFT) Oral Surgery: Yes (wisdom teeth) Pacemaker: No Thoracic Surgery: No Other Surgery: Yes (plate under L eye, abscess in liver drained) Social History Alcohol Use: Yes (QUIT 1.5 WEEKS GO) Tobacco Use: Yes (/2 PPD) Substance Use: Yes (medicinal marijuana) Allergies-Medications (Allergen,Severity, Reaction): Coded Allergies: latex (Verified Allergy, Unknown, RASH, 05/09/17) Reported Meds & Prescriptions Reported Meds & Active Scripts Active Chlordiazepoxide HCl 10 Mg Capsule 10 Mg PO TID Reported Spironolactone 25 Mg Tab 25 Mg PO DAILY Review of Systems Except as stated in HPI: all other systems reviewed are Neg Eyes: No: Visual changes HENT: Positive: Sore Throat, Congestion, No: Headaches Respiratory: Positive: Cough Gastrointestinal: No: Nausea, Vomiting, Diarrhea, Abdominal Pain, Hematemesis, Hematochezia, Constipation, Changes in Bowel Habits Genitourinary: No: Dysuria Musculoskeletal: Positive: Myalgias Skin: No Rash Physical Exam Narrative GENERAL: A 46-year-old male Non toxic appearing. SKIN: Warm and dry. No rash HEAD: Normocephalic. EYES: No injection or drainage. Ear/nose/throat: No TM erythema clear nasal discharge. Mild pharyngeal erythema without tonsillar hypertrophy or exudate. NECK: Supple. No meningismus CARDIOVASCULAR: Regular rate and rhythm RESPIRATORY: Breath sounds equal bilaterally. No accessory muscle use. No wheezing rales or rhonchi. GASTROINTESTINAL: Abdomen soft, non-tender, mild abdominal distention. He reports his abdomen has decreased in size since his discharge from the hospital. MUSCULOSKELETAL: No cyanosis, or edema. BACK: No CVA tenderness. Data Data Last Documented VS Vital Signs Date Time Temp Pulse Resp B/P (MAP) Pulse Ox O2 Delivery O2 Flow Rate FiO2 05/09/17 18:46 98.8 106 18 125/58 (80) 97 MDM Medical Decision Making Medical Screen Exam Complete: Yes Emergency Medical Condition: Yes Differential Diagnosis Influenza, pneumonia, bronchitis Narrative Course This is a 46-year-old male here with flulike illness. He is within the timeframe to receive Tamiflu. He is also reporting colored phlegm. The patient is nontoxic-appearing. He recently had lab work which we've reviewed. His CBC and chemistry panel were essentially normal. His LFTs are improving from his previous visit. Treatment options were discussed with patient. He would like to be treated with Tamiflu. I will also cover for possible bronchial pneumonia given his report of productive cough and colored sputum. Return precautions were discussed. Patient verbalizes understanding and agrees to plan Diagnosis Primary Impression: Influenza-like illness Referrals: Primary Care Physician Additional Instructions: Medications as prescribed. Stay well hydrated. Follow-up with your primary doctor for recheck. Return to emergency department if he developed new or worsening symptoms Scripts Azithromycin (Azithromycin) 250 Mg Tab 250 MG PO DAILY for Infection, #4 TAB 0 Refills Prov: Kristina Kiser 05/09/17 Oseltamivir (Tamiflu) 75 Mg Cap 75 MG PO BID for Mgmt Viral Infection for 5 Days, #10 CAP 0 Refills Prov: Kristina Kiser 05/09/17 Disposition: 01 DISCHARGE HOME Condition: Stable Kristina Kiser May 09, 2017 20:36
[2017-05-09] MEDS ORDERED: AZITHROMYCIN 250 MG TAB PO ONE (20:45)
[2017-05-09] MEDS ORDERED: OSELTAMIVIR PHOSPHATE 75 MG CAP PO ONE (20:45)
== END 2017-05-09 20:50 | disposition home or self-care (01) ==
LOC: PHEFT 18:44
DX: J11.1 Influenza due to unidentified influenza virus with other respiratory manifestations (principal); R18.8 Other ascites; I10 Essential (primary) hypertension; Z72.0 Tobacco use; Z79.899 Other long term (current) drug therapy
CPT/HCPCS: 99283